=== PATIENT | male | born 1990 | race Two or more races ===

== ENCOUNTER 2020-05-15 03:55 | Inpatient (IN) | payer MEDICARE, OTHER ==
[~2020-05-15] VITALS: Ht 165.1 cm; Wt 52.5 kg
[2020-05-15 04:14] LABS: BASO % 1 % (0-3); EOS % 0 % (0-3); HEMATOCRIT 30.7 % (39.0-53.0); HEMOGLOBIN 10.3 g/dL (13.0-17.5); LYMPH # 0.5 x10^3/uL (1.0-4.8); LYMPH % 21 % (24-48); MEAN CORPUSCULAR HEMOGLOBIN 30 pg (25-35); MEAN CORPUSCULAR HGB CONC 34 g/dL (31-37); MEAN CORPUSCULAR VOLUME 88 fL (79-100); MONO # 0.1 x10^3/uL (0.0-1.1); MONO % 6 % (0-9); NEUT # 1.7 x10^3/uL (1.8-7.7); NEUT % 72 % (31-73); PLATELET COUNT 81 x10^3/uL (140-400); RED BLOOD COUNT 3.47 x10^6/uL (4.30-5.70); RED CELL DISTRIBUTION WIDTH 14.2 % (11.5-14.5); WHITE BLOOD COUNT 2.3 x10^3/uL (4.0-11.0)
[2020-05-15] MEDS ORDERED: ACETAMINOPHEN 500 MG TABLET PO ONE (04:15)
[2020-05-15 04:33] LABS: CALCIUM 7.3 mg/dL (8.5-10.1); CREATININE 11.4 mg/dL (0.7-1.3); GFR 5.3; POTASSIUM 4.4 mmol/L (3.5-5.1)
[2020-05-15 04:39] LABS: TOTAL BILIRUBIN 0.7 mg/dL (0.2-1.0); TOTAL PROTEIN 5.9 g/dL (6.4-8.2)
--- NOTE | 2020-05-15 04:48 | RAD ---
CHEST AP ONLY INDICATION: SOB COMPARISON STUDY: None. FINDINGS: Lungs: Normal lung volume. Multifocal bilateral heterogeneous opacities with areas of nodularity. Pleura: No pleural effusion or pneumothorax. Heart and Mediastinum: Cardiomegaly. Tortuosity of the thoracic aorta. Splaying of the benjamín and double density sign. IMPRESSION: 1. Multifocal bilateral heterogeneous opacities. In the acute setting this probably represents pulmonary edema or multifocal infection. Given some areas of nodularity, follow-up to radiographic resolution is recommended. Alternatively, contrast enhanced CT chest could also be considered. 2. Cardiomegaly. Splaying of the benjamín and double density sign suggestive of left atrial enlargement. Electronically signed by: Casper Olivera MD (05/15/2020 4:45 AM) [facility]
[2020-05-15] MEDS ORDERED: AZITHRMYCN 500MG IVPB FOR OMNI 250 ML IV ONE (05:00)
[2020-05-15] MEDS ORDERED: cefTRIAXone IV Push 1 GM VIAL. IVP ONE (05:00)
--- NOTE | 2020-05-15 05:24 | PHYS DOC ---
Past Medical History Past Medical History: Hypertension, Other Additional Past Medical Histor: esrd Past Surgical History: Other Additional Past Surgical Histo: fistula left upper arm Smoking Status: Never Smoker Alcohol Use: None General Adult EDM: Chief Complaint: SHORTNESS OF BREATH HPI: HPI: Patient is a 29 year old male presenting to the ER by EMS with a chief complai nt of shortness of breath. Patient was tested positive for COVID 4 days ago. Patient also states that he has a fever and has body aches. Patient states that she has had the symptoms for the last 1 week. Patient does state that he has a history of dialysis and goes to dialysis every Friday, and Friday. Patient also states that he has a history of hypertension. Review of Systems: Review of Systems: Constitutional: Complains of fever and body aches [] Eyes: Denies change in visual acuity. [] HENT: Denies nasal congestion or sore throat. [] Respiratory: Complains of shortness of breath [] Cardiovascular: Denies chest pain or edema. [] GI: Denies abdominal pain, nausea, vomiting, bloody stools or diarrhea. [] : Denies dysuria. [] Musculoskeletal: Denies back pain or joint pain. [] Heart Score: Risk Factors: Risk Factors: DM, Current or recent (<one month) smoker, HTN, HLP, family history of CAD, obesity. Risk Scores: Score 0 - 3: 2.5% MACE over next 6 weeks - Discharge Home Score 4 - 6: 20.3% MACE over next 6 weeks - Admit for Clinical Observation Score 7 - 10: 72.7% MACE over next 6 weeks - Early Invasive Strategies Current Medications: Current Medications Medications (Trade) Dose Ordered Sig/Wale Start Time Stop Time Status Last Admin Dose Admin Acetaminophen (Tylenol) 1,000 mg 1X ONCE 05/15/20 04:15 05/15/20 04:21 DC 05/15/20 04:13 1,000 MG Aspirin (Aspirin Chewable) 324 mg 1X ONCE 05/15/20 05:30 05/15/20 05:31 Azithromycin 250 ml @ 250 mls/hr 1X ONCE 05/15/20 05:00 05/15/20 05:59 Ceftriaxone Sodium (Rocephin) 1 gm 1X ONCE 05/15/20 05:00 05/15/20 05:01 DC Allergies: Allergies: Allergies Coded Allergies Type Severity Reaction Last Updated Verified No Known Drug Allergies 05/15/20 No Physical Exam: PE: Constitutional: Well developed, well nourished, no acute distress, non-toxic appearance. [] HENT: Normocephalic, atraumatic Eyes: EOMI Neck: Normal range of motion, Supple Cardiovascular:Heart rate regular rhythm Lungs & Thorax: Bilateral rhonchi [] Abdomen: Bowel sounds normal, soft, no tenderness Extremities: No tenderness, ROM intact Neurologic: Alert and oriented X 3 Current Patient Data: Labs: Laboratory Tests Test 05/15/20 04:05 White Blood Count 2.3 x10^3/uL (4.0-11.0) L Red Blood Count 3.47 x10^6/uL (4.30-5.70) L Hemoglobin 10.3 g/dL (13.0-17.5) L Hematocrit 30.7 % (39.0-53.0) L Mean Corpuscular Volume 88 fL (79-100) Mean Corpuscular Hemoglobin 30 pg (25-35) Mean Corpuscular Hemoglobin Concent 34 g/dL (31-37) Red Cell Distribution Width 14.2 % (11.5-14.5) Platelet Count 81 x10^3/uL (140-400) L Neutrophils (%) (Auto) 72 % (31-73) Lymphocytes (%) (Auto) 21 % (24-48) L Monocytes (%) (Auto) 6 % (0-9) Eosinophils (%) (Auto) 0 % (0-3) Basophils (%) (Auto) 1 % (0-3) Neutrophils # (Auto) 1.7 x10^3/uL (1.8-7.7) L Lymphocytes # (Auto) 0.5 x10^3/uL (1.0-4.8) L Monocytes # (Auto) 0.1 x10^3/uL (0.0-1.1) Eosinophils # (Auto) 0.0 x10^3/uL (0.0-0.7) Basophils # (Auto) 0.0 x10^3/uL (0.0-0.2) Sodium Level 133 mmol/L (136-145) L Potassium Level 4.4 mmol/L (3.5-5.1) Chloride Level 97 mmol/L (98-107) L Carbon Dioxide Level 20 mmol/L (21-32) L Anion Gap 16 (6-14) H Blood Urea Nitrogen 64 mg/dL (8-26) H Creatinine 11.4 mg/dL (0.7-1.3) H Estimated GFR (Cockcroft-Gault) 5.3 BUN/Creatinine Ratio 6 (6-20) Glucose Level 125 mg/dL (70-99) H Lactic Acid Level 0.6 mmol/L (0.4-2.0) Calcium Level 7.3 mg/dL (8.5-10.1) L Total Bilirubin 0.7 mg/dL (0.2-1.0) Aspartate Amino Transferase (AST) 21 U/L (15-37) Alanine Aminotransferase (ALT) 16 U/L (16-63) Alkaline Phosphatase 63 U/L (46-116) Troponin I Quantitative 0.219 ng/mL (0.000-0.055) KP-Kzk-H-Type Natriuretic Peptide > 44956 pg/mL (0-124) H Total Protein 5.9 g/dL (6.4-8.2) L Albumin 3.0 g/dL (3.4-5.0) L Albumin/Globulin Ratio 1.0 (1.0-1.7) Laboratory Tests 05/15/20 04:05 Laboratory Tests 05/15/20 04:05 Vital Signs: Vital Signs Date Time Temp Pulse Resp B/P (MAP) Pulse Ox O2 Delivery O2 Flow Rate FiO2 05/15/20 03:55 101.3 102 22 158/97 (117) 89 Room Air 101.3 EKG: EKG: [EKG interpretation: 4: 09 AM on 05/15/2020 HR: 90 Sinus rhythm Regular intervals Leftward axis Acute T waves in V2, V3, V4, V5 Nonspecific ST changes ] Radiology/Procedures: Radiology/Procedures: [] Impression: CXR IMPRESSION: 1. Multifocal bilateral heterogeneous opacities. In the acute setting this probably represents pulmonary edema or multifocal infection. Given some areas of nodularity, follow-up to radiographic resolution is recommended. Alternatively, contrast enhanced CT chest could also be considered. 2. Cardiomegaly. Splaying of the benjamín and double density sign suggestive of left atrial enlargement. Course & Med Decision Making: Course & Med Decision Making Pertinent Labs and Imaging studies reviewed. (See chart for details) Chest x-ray shows multifocal opacities in bilateral lungs Cardiomegaly is also seen. Patient's potassium is within normal limits. Patient's BNP is elevated Troponin is elevated at 0.219. Patient was given aspirin in the ER. IV antibiotics started in the ER. Patient will be admitted for further evaluation and treatment. Discussed results and plan of care with patient. Will discuss patient case with hospitalist service for admission. Dragon Disclaimer: Dragcarmel Disclaimer: This electronic medical record was generated, in whole or in part, using a voice recognition dictation system. Departure Departure Impression: Primary Impression: Pneumonia Additional Impressions: NSTEMI (non-ST elevated myocardial infarction) COVID-19 Disposition: ADMITTED INPATIENT Admitting Physician: IGOR Condition: GUARDED Referrals: LAITH MIRANDA MD (PCP) Justicifation of Admission Dx: Justifications for Admission: Justification of Admission Dx: Yes Comments: COVID, PNEUMONIA, NSTEMI URBANO HOANG DO May 15, 2020 05:24
[2020-05-15] MEDS ORDERED: ASPIRIN CHEWABLE 81 MG TABLET. PO ONE (05:30)
[2020-05-15 07:20] VITALS: BP 140/72
[2020-05-15] MEDS ORDERED: CALC667T4 PO (11:01)
[2020-05-15] MEDS ORDERED: CARV25TA2 PO (11:01)
[2020-05-15] MEDS ORDERED: CLON0.2T PO (11:01)
[2020-05-15] MEDS ORDERED: AMLO10TA8 PO (11:01)
[2020-05-15 11:20] VITALS: BP 145/82
[2020-05-15] MEDS: CARVEDILOL 12.5 MG TABLET. PO SCH ×2 (12:13→17:05)
[2020-05-15] MEDS: CALCIUM ACETATE 667 MG CAPSULE PO SCH ×2 (12:14→17:03)
[2020-05-15] MEDS: amLODIPine BESYLATE 10 MG TABLET PO SCH (12:14)
[2020-05-15] MEDS: cloNIDine HCL 0.2 MG TABLET PO SCH ×2 (12:14→20:08)
--- NOTE | 2020-05-15 12:41 | HP ---
ADMIT DATE: 05/15/2020 CHIEF COMPLAINT: Shortness of breath. HISTORY OF PRESENT ILLNESS: The patient is a pleasant 29-year-old male who presented to the ER last night with shortness of breath. He apparently was tested positive for COVID-19 four days ago. While in the ER, he does appear to have pneumonia on chest x-ray. I discussed the case with ER physician. We have admitted the patient with consultation to Pulmonary Medicine, Cardiology and Nephrology. PAST MEDICAL HISTORY: End-stage renal disease, I believe he is on dialysis; hypertension, fistula in the left upper arm. ALLERGIES: None. FAMILY HISTORY: Diabetes. SOCIAL HISTORY: He does not drink, smoke or take drugs. MEDICATIONS: Reviewed, please refer to the MRAD. REVIEW OF SYSTEMS: GENERAL: No history of weight change, weakness or fevers. SKIN: No bruising, hair changes or rashes. EYES: No blurred, double or loss of vision. NOSE AND THROAT: No history of nosebleeds, hoarseness or sore throat. HEART: No history of palpitations, chest pain or shortness of breath on exertion. LUNGS: He has shortness of breath. GASTROINTESTINAL: Denies changes in appetite, nausea, vomiting, diarrhea or constipation. GENITOURINARY: No history of frequency, urgency, hesitancy or nocturia. NEUROLOGIC: Denies history of numbness, tingling, tremor or weakness. PSYCHIATRIC: No history of panic, anxiety or depression. ENDOCRINE: No history of heat or cold intolerance, polyuria or polydipsia. EXTREMITIES: Denies muscle weakness, joint pain, pain on walking or stiffness. PHYSICAL EXAMINATION: VITALS: Within normal limits and are stable. GENERAL: No apparent distress. Alert and oriented. HEENT: Normal cephalic atraumatic, external auditory canals are patent. EYES: Extraocular muscles are intact, pupils are equally round and reactive to light and accommodation. MUSCULOSKELETAL: Well developed, well nourished, good range of motion. ENDOCRINE: No thyromegaly was palpated. LYMPHATICS: No cervical chain or axillary nodes were noted. HEMATOPOIETIC: No bruising. NECK: Supple, no JVD, no thyromegaly was noted. LUNGS: He has crackles bilaterally. HEART: RRR, S1, S2 present. Peripheral pulses intact, no obvious murmurs were noted. ABDOMEN: Soft, nontender. Positive bowel sounds no organomegaly, normal bowel sounds. EXTREMITIES: Without any cyanosis, clubbing, or edema. Pedal pulses intact, Homans sign is negative. NEUROLOGIC: Normal speech, normal tone. A and O x 3, moves all extremities, no obvious focal deficits. PSYCHIATRIC: Normal affect, normal mood. Stable. SKIN: No ulcerations or rashes, good skin turgor, no jaundice. VASCULAR: Good capillary refill, neurovascular bundle appears to be intact. IMAGING: Chest x-ray showing bilateral heterogeneous opacities representing infection or edema and cardiomegaly. ASSESSMENT AND PLAN: Respiratory failure with pneumonia and heart failure and volume overload. The patient will be admitted. We will consult Cardiology, Nephrology, and Pulmonary. Home meds. Deep venous thrombosis prophylaxis. Rule out COVID-19. Trend labs. IV azithromycin and IV ceftriaxone, O2 per nasal cannula. SARAH HUMPHREY DO DR: KEITH/zuleyma JOB#: [id number] / [id number]
[2020-05-15] MEDS: ENOXAPARIN 30 MG/0.3 ML SYRINGE. SQ SCH ×2 (15:15→15:26)
--- NOTE | 2020-05-15 15:17 | PDOC ---
PULMONARY PROGRESS NOTES Vitals Vital Signs Date Time Temp Pulse Resp B/P (MAP) Pulse Ox O2 Delivery O2 Flow Rate FiO2 05/15/20 12:14 74 145/82 05/15/20 11:20 98.3 18 96 Nasal Cannula 3.0 98.3 Labs Laboratory Tests Test 05/15/20 04:05 05/15/20 06:50 White Blood Count 2.3 x10^3/uL (4.0-11.0) Red Blood Count 3.47 x10^6/uL (4.30-5.70) Hemoglobin 10.3 g/dL (13.0-17.5) Hematocrit 30.7 % (39.0-53.0) Mean Corpuscular Volume 88 fL (79-100) Mean Corpuscular Hemoglobin 30 pg (25-35) Mean Corpuscular Hemoglobin Concent 34 g/dL (31-37) Red Cell Distribution Width 14.2 % (11.5-14.5) Platelet Count 81 x10^3/uL (140-400) Neutrophils (%) (Auto) 72 % (31-73) Lymphocytes (%) (Auto) 21 % (24-48) Monocytes (%) (Auto) 6 % (0-9) Eosinophils (%) (Auto) 0 % (0-3) Basophils (%) (Auto) 1 % (0-3) Neutrophils # (Auto) 1.7 x10^3/uL (1.8-7.7) Lymphocytes # (Auto) 0.5 x10^3/uL (1.0-4.8) Monocytes # (Auto) 0.1 x10^3/uL (0.0-1.1) Eosinophils # (Auto) 0.0 x10^3/uL (0.0-0.7) Basophils # (Auto) 0.0 x10^3/uL (0.0-0.2) Sodium Level 133 mmol/L (136-145) Potassium Level 4.4 mmol/L (3.5-5.1) Chloride Level 97 mmol/L (98-107) Carbon Dioxide Level 20 mmol/L (21-32) Anion Gap 16 (6-14) Blood Urea Nitrogen 64 mg/dL (8-26) Creatinine 11.4 mg/dL (0.7-1.3) Estimated GFR (Cockcroft-Gault) 5.3 BUN/Creatinine Ratio 6 (6-20) Glucose Level 125 mg/dL (70-99) Lactic Acid Level 0.6 mmol/L (0.4-2.0) Calcium Level 7.3 mg/dL (8.5-10.1) Total Bilirubin 0.7 mg/dL (0.2-1.0) Aspartate Amino Transf (AST/SGOT) 21 U/L (15-37) Alanine Aminotransferase (ALT/SGPT) 16 U/L (16-63) Alkaline Phosphatase 63 U/L (46-116) Troponin I Quantitative 0.219 ng/mL (0.000-0.055) 0.217 ng/mL (0.000-0.055) HG-Pfx-K-Type Natriuretic Peptide > 84720 pg/mL (0-124) Total Protein 5.9 g/dL (6.4-8.2) Albumin 3.0 g/dL (3.4-5.0) Albumin/Globulin Ratio 1.0 (1.0-1.7) Laboratory Tests Test 05/15/20 04:05 05/15/20 06:50 White Blood Count 2.3 x10^3/uL (4.0-11.0) Red Blood Count 3.47 x10^6/uL (4.30-5.70) Hemoglobin 10.3 g/dL (13.0-17.5) Hematocrit 30.7 % (39.0-53.0) Mean Corpuscular Volume 88 fL (79-100) Mean Corpuscular Hemoglobin 30 pg (25-35) Mean Corpuscular Hemoglobin Concent 34 g/dL (31-37) Red Cell Distribution Width 14.2 % (11.5-14.5) Platelet Count 81 x10^3/uL (140-400) Neutrophils (%) (Auto) 72 % (31-73) Lymphocytes (%) (Auto) 21 % (24-48) Monocytes (%) (Auto) 6 % (0-9) Eosinophils (%) (Auto) 0 % (0-3) Basophils (%) (Auto) 1 % (0-3) Neutrophils # (Auto) 1.7 x10^3/uL (1.8-7.7) Lymphocytes # (Auto) 0.5 x10^3/uL (1.0-4.8) Monocytes # (Auto) 0.1 x10^3/uL (0.0-1.1) Eosinophils # (Auto) 0.0 x10^3/uL (0.0-0.7) Basophils # (Auto) 0.0 x10^3/uL (0.0-0.2) Sodium Level 133 mmol/L (136-145) Potassium Level 4.4 mmol/L (3.5-5.1) Chloride Level 97 mmol/L (98-107) Carbon Dioxide Level 20 mmol/L (21-32) Anion Gap 16 (6-14) Blood Urea Nitrogen 64 mg/dL (8-26) Creatinine 11.4 mg/dL (0.7-1.3) Estimated GFR (Cockcroft-Gault) 5.3 BUN/Creatinine Ratio 6 (6-20) Glucose Level 125 mg/dL (70-99) Lactic Acid Level 0.6 mmol/L (0.4-2.0) Calcium Level 7.3 mg/dL (8.5-10.1) Total Bilirubin 0.7 mg/dL (0.2-1.0) Aspartate Amino Transf (AST/SGOT) 21 U/L (15-37) Alanine Aminotransferase (ALT/SGPT) 16 U/L (16-63) Alkaline Phosphatase 63 U/L (46-116) Troponin I Quantitative 0.219 ng/mL (0.000-0.055) 0.217 ng/mL (0.000-0.055) WJ-Hft-B-Type Natriuretic Peptide > 59397 pg/mL (0-124) Total Protein 5.9 g/dL (6.4-8.2) Albumin 3.0 g/dL (3.4-5.0) Albumin/Globulin Ratio 1.0 (1.0-1.7) Medications Active Scripts Medications Dose Route/Sig Max Daily Dose Days Date Category Calcium Acetate 667 Mg Tablet 1 Tab PO TID 30 05/15/20 Reported Amlodipine Besylate 10 Mg Tablet 10 Mg PO DAILY 05/15/20 Reported Clonidine Hcl 0.2 Mg Tablet 1 Tab PO BID 05/15/20 Reported Carvedilol 25 Mg Tablet 25 Mg PO BIDWMEALS 05/15/20 Reported Impression . Full report dictated COVID-19, viral pneumonia Add steroids DVT prophylaxis Data not very strong on use of the Remdesivir in this clinical presentation KRISTIE XIONG MD May 15, 2020 15:17
[2020-05-15] MEDS: methylPREDNISolone SOD SUCC PF 125 MG/2 ML VIAL. IV SCH ×2 (15:26→20:09)
[2020-05-15 15:30] VITALS: BP 135/78
--- NOTE | 2020-05-15 16:09 | PDOC2 ---
WASHINGTON PATEL URANIUM PROCESSING SUPERVISOR 05/15/20 1609: CARDIAC CONSULT DATE OF CONSULT Date of Consult DATE: 05/15/20 TIME: 15:59 REASON FOR CONSULT Reason for Consult: Elevated troponin REFERRING PHYSICIAN Referring Physician: Dr. Artis SOURCE Source: Chart review, Patient HISTORY OF PRESENT ILLNESS HISTORY OF PRESENT ILLNESS This is a 29 yo male, with a history of hypertension and ESRD on HD, who presented secondary to shortness of breath. Reports week long history of fever, body aches, and shortness of breath. Tested positive for COVID 4 days ago. Troponin noted to be mildly elevated, which prompted this consult. Denies any chest pain, palpitations, dizziness, or nausea/vomiting. PAST MEDICAL HISTORY Cardiovascular: HTN Renal/: Chronic renal failure (ESRD on HD) PAST SURGICAL HISTORY Past Surgical History: No pertinent history FAMILY HISTORY Family History: Diabetes SOCIAL HISTORY Smoke: No ALCOHOL: none Drugs: None CURRENT MEDICATIONS CURRENT MEDICATIONS Current Medications Medications (Trade) Dose Ordered Sig/Wale Route PRN Reason Start Time Stop Time Status Last Admin Dose Admin Acetaminophen (Tylenol) 1,000 mg 1X ONCE PO 05/15/20 04:15 05/15/20 04:21 DC 05/15/20 04:13 Ceftriaxone Sodium (Rocephin) 1 gm 1X ONCE IVP 05/15/20 05:00 05/15/20 05:01 DC 05/15/20 05:33 Azithromycin 250 ml @ 250 mls/hr 1X ONCE IV 05/15/20 05:00 05/15/20 05:59 DC 05/15/20 05:36 Aspirin (Aspirin Chewable) 324 mg 1X ONCE PO 05/15/20 05:30 05/15/20 05:31 DC 05/15/20 05:34 Amlodipine Besylate (Norvasc) 10 mg DAILY PO 05/15/20 12:00 05/15/20 12:14 Clonidine HCl (Catapres) 0.2 mg BID PO 05/15/20 11:00 05/15/20 12:14 Calcium Acetate (Phoslo) 667 mg TIDWMEALS PO 05/15/20 12:00 05/15/20 12:14 Carvedilol (Coreg) 25 mg BIDWMEALS PO 05/15/20 12:00 05/15/20 12:13 Methylprednisolone Sodium Succinate (SOLU-Medrol 125MG VIAL) 125 mg Q8HRS IV 05/15/20 15:15 05/15/20 15:26 ALLERGIES ALLERGIES: Coded Allergies: No Known Drug Allergies (Unverified , 05/15/20) ROS Review of System 14 point ROS conducted with pertinent positives noted above in HPI PHYSICAL EXAM PHYSICAL EXAM visual exam conducted due to COVID. D/w RN General: Alert, Oriented X3, Cooperative HEENT: Atraumatic Heart: Regular rate (tele SR) Extremities: No edema Neuro: Normal speech Psych/Mental Status: Mental status NL MUSCULOSKELETAL: No deformity VITALS/I&O VITALS/I&O: Vital Signs Date Time Temp Pulse Resp B/P (MAP) Pulse Ox O2 Delivery O2 Flow Rate FiO2 05/15/20 15:30 101.9 80 20 135/78 (97) 95 Nasal Cannula 3.0 101.9 LABS Lab: Laboratory Tests Test 05/15/20 04:05 05/15/20 06:50 White Blood Count 2.3 x10^3/uL (4.0-11.0) L Red Blood Count 3.47 x10^6/uL (4.30-5.70) L Hemoglobin 10.3 g/dL (13.0-17.5) L Hematocrit 30.7 % (39.0-53.0) L Mean Corpuscular Volume 88 fL (79-100) Mean Corpuscular Hemoglobin 30 pg (25-35) Mean Corpuscular Hemoglobin Concent 34 g/dL (31-37) Red Cell Distribution Width 14.2 % (11.5-14.5) Platelet Count 81 x10^3/uL (140-400) L Neutrophils (%) (Auto) 72 % (31-73) Lymphocytes (%) (Auto) 21 % (24-48) L Monocytes (%) (Auto) 6 % (0-9) Eosinophils (%) (Auto) 0 % (0-3) Basophils (%) (Auto) 1 % (0-3) Neutrophils # (Auto) 1.7 x10^3/uL (1.8-7.7) L Lymphocytes # (Auto) 0.5 x10^3/uL (1.0-4.8) L Monocytes # (Auto) 0.1 x10^3/uL (0.0-1.1) Eosinophils # (Auto) 0.0 x10^3/uL (0.0-0.7) Basophils # (Auto) 0.0 x10^3/uL (0.0-0.2) Sodium Level 133 mmol/L (136-145) L Potassium Level 4.4 mmol/L (3.5-5.1) Chloride Level 97 mmol/L (98-107) L Carbon Dioxide Level 20 mmol/L (21-32) L Anion Gap 16 (6-14) H Blood Urea Nitrogen 64 mg/dL (8-26) H Creatinine 11.4 mg/dL (0.7-1.3) H Estimated GFR (Cockcroft-Gault) 5.3 BUN/Creatinine Ratio 6 (6-20) Glucose Level 125 mg/dL (70-99) H Lactic Acid Level 0.6 mmol/L (0.4-2.0) Calcium Level 7.3 mg/dL (8.5-10.1) L Total Bilirubin 0.7 mg/dL (0.2-1.0) Aspartate Amino Transferase (AST) 21 U/L (15-37) Alanine Aminotransferase (ALT) 16 U/L (16-63) Alkaline Phosphatase 63 U/L (46-116) Troponin I Quantitative 0.219 ng/mL (0.000-0.055) 0.217 ng/mL (0.000-0.055) GQ-Paz-U-Type Natriuretic Peptide > 64882 pg/mL (0-124) H Total Protein 5.9 g/dL (6.4-8.2) L Albumin 3.0 g/dL (3.4-5.0) L Albumin/Globulin Ratio 1.0 (1.0-1.7) Laboratory Tests 05/15/20 04:05 Laboratory Tests 05/15/20 04:05 ASSESSMENT/PLAN ASSESSMENT/PLAN 1. Acute respiratory failure secondary to COVID PNA. Febrile 2. Leukopenia 3. NSTEMI; trop peak 0.219. Most probably type II, demand ischemic in setting of COVID, uremia. 4. Acute diastolic CHF 5. ESRD on HD; uremic 6. Hypertension; controlled Recommendations Fluid offloading/management via HD Lipids Lung optimization as per pulmonary Continue home antiHTN therapy Will obtain outpatient echocardiogram when recovered from COVID Supportive care PACO HESTER MD 05/15/20 1614: CARDIAC CONSULT ASSESSMENT/PLAN ASSESSMENT/PLAN Agree with INSTALLATION & MAINTENANCE EXECUTIVE's assessment and plan. Slight troponin elevation probably demand ischemia. Patient is chest pain-free. Continue fluid removal with hemodialysis for acute on chronic diastolic heart failure. Continue treatment for acute respiratory failure/COVID pneumonia per pulmonary team. We will obtain 2D echocardiogram as an outpatient. Thank you for your consultation WASHINGTON PATEL APRN May 15, 2020 16:09 PACO HESTER MD May 15, 2020 16:14
[2020-05-15] MEDS: ACETAMINOPHEN 325 MG TABLET. PO PRN (16:11)
[2020-05-15 16:29] LABS: CHOLESTEROL/HDL RATIO 5.6
--- NOTE | 2020-05-15 16:58 | NUR ---
SW following. Reviewed chart and spoke with RN. Pt from home. Pt on 3l 02 and IV Rocephin. Pt positive for Pneumonia. Pt consulted by Pulmonary, Cardiology and Nephrology. Pt does out-patient dialysis at [facility] on Tuesdays, and Saturdays, , (fax). Pt has been doing dialysis at [place] location per COVID-19 and SW confirmed with [facility] intake. SW will continue following.
[2020-05-15 19:00] VITALS: BP 137/89
--- NOTE | 2020-05-15 20:10 | CONS ---
DATE OF CONSULTATION: 05/15/2020 ATTENDING PHYSICIAN: Ming Campos DO CONSULTING PHYSICIAN: Kristie Xiong MD REASON FOR CONSULTATION: The patient is seen in pulmonary consultation at the request of Dr. Campos for COVID-19, increasing shortness of breath. HISTORY OF PRESENT ILLNESS: The patient is a 29-year-old who was tested positive for SARS-CoV-2. He was at home. He became increasingly more short of breath and has some body aches, presented to the Emergency Room and was admitted. I was asked to see him in consultation. The patient states that initially 4 days ago he basically had an elevated temperature. He does have a history of end-stage renal disease, on hemodialysis, Friday, and Friday. There is also history of hypertension. PAST MEDICAL HISTORY: Remarkable for hypertension and end-stage renal disease. REVIEW OF SYSTEMS: As indicated above, otherwise, other systems were reviewed and negative. FAMILY HISTORY: Mother with COVID-19. SOCIAL HISTORY: Denies any tobacco or alcohol. CURRENT MEDICATIONS: List was reviewed. PHYSICAL EXAMINATION: VITAL SIGNS: Stable. O2 saturation was greater than 92%. He is currently on 2 liters. His T-max was yesterday 101.3. HEENT: Eyes, the sclerae were nonicteric. NECK: Jugular venous distention was not elevated. No lymphadenopathy. CHEST: Full expansion. LUNGS: Adequate flow with no wheezes. CARDIOVASCULAR: Regular rate and rhythm with S1, S2, no S3. ABDOMEN: Soft, nontender, nondistended. EXTREMITIES: No clubbing, cyanosis or edema. LABORATORY DATA: WBC revealed leukopenia, lymphocytopenia. Sodium was low. BUN and creatinine were elevated. Calcium was low. BNP was elevated. Troponin was elevated. Chest x-ray revealed bilateral pulmonary infiltrates. IMPRESSION: 1. Acute hypoxemic failure. 2. COVID-19 viral pneumonia. 3. Fever secondary to above. 4. End-stage renal disease. PLAN: 1. We will continue support with oxygen. 2. Steroids. 3. We will consider remdesivir. 4. DVT and GI prophylaxis. I do appreciate the privilege in sharing in the patient's care. KRISTIE XIONG MD DR: CARLOS/zuleyma JOB#: [id number] / [id number]
[2020-05-15] MEDS: HEPARIN for SUB-Q USE 5,000 UNIT/ML VIAL. SQ SCH (22:00)
[2020-05-15 23:00] VITALS: BP 135/99
[2020-05-16 03:00] VITALS: BP 136/82
[2020-05-16] MEDS: methylPREDNISolone SOD SUCC PF 125 MG/2 ML VIAL. IV SCH ×3 (04:49→21:13)
[2020-05-16] MEDS: AZITHROMYCIN 500 MG in IV NORMAL SALINE 250ML 250 ML IV SCH (04:49)
[2020-05-16] MEDS: HEPARIN for SUB-Q USE 5,000 UNIT/ML VIAL. SQ SCH ×3 (04:50→21:12)
[2020-05-16] MEDS: cefTRIAXone IV Push 1 GM VIAL. IVP SCH (04:50)
[2020-05-16 07:15] VITALS: BP 126/77
[2020-05-16] MEDS: CARVEDILOL 12.5 MG TABLET. PO SCH ×2 (08:00→14:20)
[2020-05-16] MEDS: cloNIDine HCL 0.2 MG TABLET PO SCH ×2 (08:09→21:13)
[2020-05-16] MEDS ORDERED: IV NORMAL SALINE 1000ML BAG 1,000 ML IV PRN ×4 (08:13→08:34)
[2020-05-16] MEDS ORDERED: diphenhydrAMINE 50 MG/ML VIAL IV PRN ×2 (08:15)
[2020-05-16] MEDS ORDERED: DIALYSIS PATIENT. MC PRN ×3 (08:15→08:45)
[2020-05-16] MEDS ORDERED: ALBUMIN HUMAN 25% 200 ML IV PRN ×2 (08:15→08:45)
[2020-05-16] MEDS: CALCIUM ACETATE 667 MG CAPSULE PO SCH ×3 (08:17→17:00)
--- NOTE | 2020-05-16 08:49 | PDOC ---
PULMONARY PROGRESS NOTES Subjective No new symptoms Vitals Vital Signs Date Time Temp Pulse Resp B/P (MAP) Pulse Ox O2 Delivery O2 Flow Rate FiO2 05/16/20 07:45 Nasal Cannula 3.0 05/16/20 07:15 97.0 60 126/77 (93) 97 97.0 05/16/20 03:00 16 Comments Patient seen doing the pandemic, on visual examination no respiratory distress, Labs Laboratory Tests Test 05/15/20 04:05 05/15/20 04:50 05/15/20 06:50 White Blood Count 2.3 x10^3/uL (4.0-11.0) Red Blood Count 3.47 x10^6/uL (4.30-5.70) Hemoglobin 10.3 g/dL (13.0-17.5) Hematocrit 30.7 % (39.0-53.0) Mean Corpuscular Volume 88 fL (79-100) Mean Corpuscular Hemoglobin 30 pg (25-35) Mean Corpuscular Hemoglobin Concent 34 g/dL (31-37) Red Cell Distribution Width 14.2 % (11.5-14.5) Platelet Count 81 x10^3/uL (140-400) Neutrophils (%) (Auto) 72 % (31-73) Lymphocytes (%) (Auto) 21 % (24-48) Monocytes (%) (Auto) 6 % (0-9) Eosinophils (%) (Auto) 0 % (0-3) Basophils (%) (Auto) 1 % (0-3) Neutrophils # (Auto) 1.7 x10^3/uL (1.8-7.7) Lymphocytes # (Auto) 0.5 x10^3/uL (1.0-4.8) Monocytes # (Auto) 0.1 x10^3/uL (0.0-1.1) Eosinophils # (Auto) 0.0 x10^3/uL (0.0-0.7) Basophils # (Auto) 0.0 x10^3/uL (0.0-0.2) Sodium Level 133 mmol/L (136-145) Potassium Level 4.4 mmol/L (3.5-5.1) Chloride Level 97 mmol/L (98-107) Carbon Dioxide Level 20 mmol/L (21-32) Anion Gap 16 (6-14) Blood Urea Nitrogen 64 mg/dL (8-26) Creatinine 11.4 mg/dL (0.7-1.3) Estimated GFR (Cockcroft-Gault) 5.3 BUN/Creatinine Ratio 6 (6-20) Glucose Level 125 mg/dL (70-99) Lactic Acid Level 0.6 mmol/L (0.4-2.0) Calcium Level 7.3 mg/dL (8.5-10.1) Total Bilirubin 0.7 mg/dL (0.2-1.0) Aspartate Amino Transf (AST/SGOT) 21 U/L (15-37) Alanine Aminotransferase (ALT/SGPT) 16 U/L (16-63) Alkaline Phosphatase 63 U/L (46-116) Troponin I Quantitative 0.219 ng/mL (0.000-0.055) 0.217 ng/mL (0.000-0.055) FK-Apq-O-Type Natriuretic Peptide > 17638 pg/mL (0-124) Total Protein 5.9 g/dL (6.4-8.2) Albumin 3.0 g/dL (3.4-5.0) Albumin/Globulin Ratio 1.0 (1.0-1.7) Triglycerides Level 127 mg/dL (0-150) Cholesterol Level 112 mg/dL (0-200) LDL Cholesterol, Calculated 67 mg/dL (0-100) VLDL Cholesterol, Calculated 25 mg/dL (0-40) Non-HDL Cholesterol Calculated 92 mg/dL (0-129) HDL Cholesterol 20 mg/dL (40-60) Cholesterol/HDL Ratio 5.6 Medications Active Scripts Medications Dose Route/Sig Max Daily Dose Days Date Category Calcium Acetate 667 Mg Tablet 1 Tab PO TID 30 05/15/20 Reported Amlodipine Besylate 10 Mg Tablet 10 Mg PO DAILY 05/15/20 Reported Clonidine Hcl 0.2 Mg Tablet 1 Tab PO BID 05/15/20 Reported Carvedilol 25 Mg Tablet 25 Mg PO BIDWMEALS 05/15/20 Reported Impression . IMPRESSION: 1. Acute hypoxemic failure. 2. COVID-19 viral pneumonia. 3. Fever secondary to above. 4. End-stage renal disease. Plan . Continue support Steroids Oxygen supplementation DVT GI prophylax KRISTIE XIONG MD May 16, 2020 08:49
--- NOTE | 2020-05-16 10:17 | PDOC2 ---
CONSULT Date of Consult Date of Consult DATE: 05/16/20 TIME: 10:04 Reason for Consult Reason for Consult: ESRD Source Source: Chart review, Patient History of Present Illness Reason for Visit: Patient is a is a 29-year-old male who was tested positive for SARS-CoV-2. He was at home. He became increasingly more short of breath and has some body aches, presented to the Emergency Room and was admitted. Per pt initially 4 days ago he had an elevated temperature. He have a history of ESRD on hemodialysis, TTS under DR. Peter's care Reports some UOP Denies any N/V. No SOb currently. Past Medical History Cardiovascular: HTN Renal/: Chronic renal failure (ESRD on HD) Past Surgical History Past Surgical History: No pertinent history Family History Family History: Diabetes Social History No ALCOHOL: none Drugs: None Current Problem List Problem List Problems Medical Problems: (1) COVID-19 Status: Acute (2) NSTEMI (non-ST elevated myocardial infarction) Status: Acute (3) Pneumonia Status: Acute Current Medications Current Medications Current Medications Acetaminophen (Tylenol) 1,000 mg 1X ONCE PO Last administered on 05/15/20at 04:13; Start 05/15/20 at 04:15; Stop 05/15/20 at 04:21; Status DC Ceftriaxone Sodium (Rocephin) 1 gm 1X ONCE IVP Last administered on 05/15/20at 05:33; Start 05/15/20 at 05:00; Stop 05/15/20 at 05:01; Status DC Azithromycin 250 ml @ 250 mls/hr 1X ONCE IV Last administered on 05/15/20at 05:36; Start 05/15/20 at 05:00; Stop 05/15/20 at 05:59; Status DC Aspirin (Aspirin Chewable) 324 mg 1X ONCE PO Last administered on 05/15/20at 05:34; Start 05/15/20 at 05:30; Stop 05/15/20 at 05:31; Status DC Amlodipine Besylate (Norvasc) 10 mg DAILY PO Last administered on 05/15/20at 1 2:14; Start 05/15/20 at 12:00 Clonidine HCl (Catapres) 0.2 mg BID PO Last administered on 05/15/20at 20:08; Start 05/15/20 at 11:00 Calcium Acetate (Phoslo) 667 mg TIDWMEALS PO Last administered on 05/16/20at 08:17; Start 05/15/20 at 12:00 Carvedilol (Coreg) 25 mg BIDWMEALS PO Last administered on 05/15/20at 17:05; Start 05/15/20 at 12:00 Ceftriaxone Sodium (Rocephin) 1 gm Q24H IVP Last administered on 05/16/20at 04:50; Start 05/16/20 at 05:30 Azithromycin 500 mg/Sodium Chloride 250 ml @ 250 mls/hr Q24H IV Last ad ministered on 05/16/20at 04:49; Start 05/16/20 at 06:00 Methylprednisolone Sodium Succinate (SOLU-Medrol 125MG VIAL) 125 mg Q8HRS IV Last administered on 05/16/20at 04:49; Start 05/15/20 at 15:15 Enoxaparin Sodium (Lovenox 30mg Syringe) 30 mg Q24H SQ ; Start 05/15/20 at 15:15; Stop 05/15/20 at 17:47; Status DC Acetaminophen (Tylenol) 650 mg PRN Q6HRS PRN PO FEVER > 101 Last administered on 05/15/20at 16:11; Start 05/15/20 at 15:45 Heparin Sodium (Porcine) (Heparin Sodium) 5,000 unit Q8HRS SQ ; Start 05/15/20 at 22:00 Sodium Chloride 1,000 ml @ 1,000 mls/hr Q1H PRN IV hypotension; Start 05/16/20 at 08:13; Stop 05/16/20 at 14:12 Albumin Human 200 ml @ 200 mls/hr 1X PRN PRN IV Hypotension; Start 05/16/20 at 08:15; Stop 05/16/20 at 14:14 Diphenhydramine HCl (Benadryl) 25 mg 1X PRN PRN IV ITCHING; Start 05/16/20 at 08:15; Stop 05/17/20 at 08:14 Diphenhydramine HCl (Benadryl) 25 mg 1X PRN PRN IV ITCHING; Start 05/16/20 at 08:15; Stop 05/17/20 at 08:14 Sodium Chloride 1,000 ml @ 400 mls/hr Q2H30M PRN IV PATENCY; Start 05/16/20 at 08:13; Stop 05/16/20 at 20:12 Info (PHARMACY MONITORING -- do not chart) 1 each PRN DAILY PRN MC SEE COMMENTS; Start 05/16/20 at 08:15 Sodium Chloride 1,000 ml @ 1,000 mls/hr Q1H PRN IV hypotension; Start 05/16/20 at 08:34; Stop 05/16/20 at 14:33 Albumin Human 200 ml @ 200 mls/hr 1X PRN PRN IV Hypotension; Start 05/16/20 at 08:45; Stop 05/16/20 at 14:44 Sodium Chloride 1,000 ml @ 400 mls/hr Q2H30M PRN IV PATENCY; Start 05/16/20 at 08:34; Stop 05/16/20 at 20:33 Info (PHARMACY MONITORING -- do not chart) 1 each PRN DAILY PRN MC SEE COMMENTS; Start 05/16/20 at 08:45; Status UNV Info (PHARMACY MONITORING -- do not chart) 1 each PRN DAILY PRN MC SEE COMMENTS; Start 05/16/20 at 08:45 Active Scripts Active Reported Calcium Acetate 667 Mg Tablet 1 Tab PO TID 30 Days Amlodipine Besylate 10 Mg Tablet 10 Mg PO DAILY Clonidine Hcl 0.2 Mg Tablet 1 Tab PO BID Carvedilol 25 Mg Tablet 25 Mg PO BIDWMEALS Allergies Allergies: Coded Allergies: No Known Drug Allergies (Unverified , 05/15/20) ROS Review of System Per HPI Physical Exam Physical Exam visual exam conducted due to COVID. D/w RN General: Alert, Oriented X3, Cooperative HEENT: Atraumatic Heart: Regular rate (tele SR) Extremities: No edema Neuro: Normal speech Psych/Mental Status: Mental status NL No Mendez Vital Signs Vital Signs Date Time Temp Pulse Resp B/P (MAP) Pulse Ox O2 Delivery O2 Flow Rate FiO2 05/16/20 07:45 Nasal Cannula 3.0 05/16/20 07:15 97.0 60 126/77 (93) 97 97.0 05/16/20 03:00 16 Assessment & Plan ESRD -On HD TTS under Dr. Peter's care , Etiology HTNsive nephrosclerosis On HD for approx 3 years, has some RRF per Pt See on HD today, tolerating well, continue as ordered , Adis Negrete Acute hypoxemic failure- Currently stable Abnormal CxR - Multifocal bilateral heterogeneous opacities.,probably represents pulmonary edema or multifocal infection. Given some areas of nodularity, follow-up to radiographic resolution is recommended. Alternatively, contrast enhanced CT chest could also be considered COVID-19 viral pneumonia- Positive at outside lab , Pulm managing HTN - BP stable Anemia- Goal Hgb 10-11, DELLA per protocol Acute diastolic CHF- stable, card consulted Labs Labs Laboratory Tests Test 05/15/20 04:05 05/15/20 04:50 05/15/20 06:50 White Blood Count 2.3 x10^3/uL (4.0-11.0) Red Blood Count 3.47 x10^6/uL (4.30-5.70) Hemoglobin 10.3 g/dL (13.0-17.5) Hematocrit 30.7 % (39.0-53.0) Mean Corpuscular Volume 88 fL (79-100) Mean Corpuscular Hemoglobin 30 pg (25-35) Mean Corpuscular Hemoglobin Concent 34 g/dL (31-37) Red Cell Distribution Width 14.2 % (11.5-14.5) Platelet Count 81 x10^3/uL (140-400) Neutrophils (%) (Auto) 72 % (31-73) Lymphocytes (%) (Auto) 21 % (24-48) Monocytes (%) (Auto) 6 % (0-9) Eosinophils (%) (Auto) 0 % (0-3) Basophils (%) (Auto) 1 % (0-3) Neutrophils # (Auto) 1.7 x10^3/uL (1.8-7.7) Lymphocytes # (Auto) 0.5 x10^3/uL (1.0-4.8) Monocytes # (Auto) 0.1 x10^3/uL (0.0-1.1) Eosinophils # (Auto) 0.0 x10^3/uL (0.0-0.7) Basophils # (Auto) 0.0 x10^3/uL (0.0-0.2) Sodium Level 133 mmol/L (136-145) Potassium Level 4.4 mmol/L (3.5-5.1) Chloride Level 97 mmol/L (98-107) Carbon Dioxide Level 20 mmol/L (21-32) Anion Gap 16 (6-14) Blood Urea Nitrogen 64 mg/dL (8-26) Creatinine 11.4 mg/dL (0.7-1.3) Estimated GFR (Cockcroft-Gault) 5.3 BUN/Creatinine Ratio 6 (6-20) Glucose Level 125 mg/dL (70-99) Lactic Acid Level 0.6 mmol/L (0.4-2.0) Calcium Level 7.3 mg/dL (8.5-10.1) Total Bilirubin 0.7 mg/dL (0.2-1.0) Aspartate Amino Transf (AST/SGOT) 21 U/L (15-37) Alanine Aminotransferase (ALT/SGPT) 16 U/L (16-63) Alkaline Phosphatase 63 U/L (46-116) Troponin I Quantitative 0.219 ng/mL (0.000-0.055) 0.217 ng/mL (0.000-0.055) ND-Srj-H-Type Natriuretic Peptide > 52347 pg/mL (0-124) Total Protein 5.9 g/dL (6.4-8.2) Albumin 3.0 g/dL (3.4-5.0) Albumin/Globulin Ratio 1.0 (1.0-1.7) Triglycerides Level 127 mg/dL (0-150) Cholesterol Level 112 mg/dL (0-200) LDL Cholesterol, Calculated 67 mg/dL (0-100) VLDL Cholesterol, Calculated 25 mg/dL (0-40) Non-HDL Cholesterol Calculated 92 mg/dL (0-129) HDL Cholesterol 20 mg/dL (40-60) Cholesterol/HDL Ratio 5.6 Review All relevant outside records, renal labs, imaging studies, telemetry/EKG's were reviewed. Images Images CxR-- 1. Multifocal bilateral heterogeneous opacities. In the acute setting this probably represents pulmonary edema or multifocal infection. Given some areas of nodularity, follow-up to radiographic resolution is recommended. Alternatively, contrast enhanced CT chest could also be considered. 2. Cardiomegaly. Splaying of the benjamín and double density sign suggestive of left atrial enlargement. ALLEN MULLEN MD May 16, 2020 10:17
--- NOTE | 2020-05-16 11:01 | NUR ---
SW following. Reviewed chart and spoke with RN. Pt from home. Pt on 3. Pt does not have home 02 so this will need to be arranged if needed at discharge. CHATA attempted to call the [facility] Department at [phone] to obtain copy of pt's COVID test results per request of RN. CHATA informed by the HD that they don't have a release of information for and that pt will need to call to request that records be released. Pt to discharge home with resumption of out-patient dialysis when stable. CHATA to continue following. Addendum: 05/16/20 at 1136 by NITZA BRIZUELA RN to request COVID testing.
--- NOTE | 2020-05-16 11:31 | PDOC ---
[facility] PROGRESS NOTE Chief Complaint Chief Complaint COVID-19 ESRD on dialysis Respiratory failure with pneumonia and heart failure and volume overload. History of Present Illness History of Present Illness 05/16/2022 Patient seen and examined He is on his way to dialysis Discussed with RN Chart Vitals/I&O Vitals/I&O: Vital Signs Date Time Temp Pulse Resp B/P (MAP) Pulse Ox O2 Delivery O2 Flow Rate FiO2 05/16/20 07:45 Nasal Cannula 3.0 05/16/20 07:15 97.0 60 126/77 (93) 97 97.0 05/16/20 03:00 16 I & O 05/15/20 05/15/20 05/16/20 15:00 23:00 07:00 Intake Total 350 ml 500 ml 700 ml Balance 350 ml 500 ml 700 ml Physical Exam General: Alert, Oriented X3, Cooperative Heart: Regular rate (tele SR) Lungs: Crackles Abdomen: Normal bowel sounds Extremities: No clubbing, No edema Skin: No rashes Assessment and Plan Assessmemt and Plan Problems Medical Problems: (1) COVID-19 Status: Acute (2) NSTEMI (non-ST elevated myocardial infarction) Status: Acute (3) Pneumonia Status: Acute COVID-19 ESRD on dialysis Respiratory failure with pneumonia and heart failure and volume overload. Plan COVID-19 protocol Dialysis Friday Home meds DVT prophylaxis Full code Appreciate subspecialist input Prognosis guarded Comment Review of Relevant I have reviewed the following items samira (where applicable) has been applied. Medications: Current Medications Medications (Trade) Dose Ordered Sig/Wale Route PRN Reason Start Time Stop Time Status Last Admin Dose Admin Amlodipine Besylate (Norvasc) 10 mg DAILY PO 05/15/20 12:00 05/15/20 12:14 Calcium Acetate (Phoslo) 667 mg TIDWMEALS PO 05/15/20 12:00 05/16/20 08:17 Carvedilol (Coreg) 25 mg BIDWMEALS PO 05/15/20 12:00 05/15/20 17:05 Ceftriaxone Sodium (Rocephin) 1 gm Q24H IVP 05/16/20 05:30 05/16/20 04:50 Azithromycin 500 mg/Sodium Chloride 250 ml @ 250 mls/hr Q24H IV 05/16/20 06:00 05/16/20 04:49 Methylprednisolone Sodium Succinate (SOLU-Medrol 125MG VIAL) 125 mg Q8HRS IV 05/15/20 15:15 05/16/20 04:49 Acetaminophen (Tylenol) 650 mg PRN Q6HRS PRN PO FEVER > 101 05/15/20 15:45 05/15/20 16:11 Justicifation of Admission Dx: Justifications for Admission: Justification of Admission Dx: Yes SARAH HUMPHREY III DO May 16, 2020 11:31
[2020-05-16] MEDS: ACETAMINOPHEN 325 MG TABLET. PO PRN (14:20)
[2020-05-16] MEDS: amLODIPine BESYLATE 10 MG TABLET PO SCH (14:20)
[2020-05-16 14:21] VITALS: BP 159/96
--- NOTE | 2020-05-16 15:16 | EKG ---
[facility] [address] [place] [address] Test Date: 2020-05-15 Test Time: 04:09:30 Pat Name: AISHA ZEE Department: Room: [facility] Gender: M Retail Beauty Specialist: : 1990 Requested By: URBANO HOANG Order Number: [id number] Reading MD: Measurements Intervals [place] Rate: 90 P: 36 MT: 164 QRS: -3 QRSD: 82 T: 114 QT: 338 QTc: 417 Interpretive Statements SINUS RHYTHM LEFT ATRIAL ABNORMALITY LEFTWARD AXIS LVH WITH REPOLARIZATION ABNORMALITY ABNORMAL ECG RI6.02 No previous ECG available for comparison
--- NOTE | 2020-05-16 15:32 | PDOC ---
WASHINGTON PATEL APRN 05/16/20 1532: CARDIO Progress Notes Date and Time Date of Service 05/16/20 Time of Evaluation 1120 Subjective Subjective: No Chest Pain, No Palpitations, No Dizziness, Other (mild SOA) Vitals Vitals Vital Signs Date Time Temp Pulse Resp B/P (MAP) Pulse Ox O2 Delivery O2 Flow Rate FiO2 05/16/20 14:21 97.2 75 159/96 (117) 97 Nasal Cannula 1.5 97.2 05/16/20 03:00 16 Weight Weight [ ] Input and Output Intake and Output Intake and Output 05/16/20 06:59 Intake Total 1550 ml Balance 1550 ml Intake Oral 1300 ml IV Total 250 ml # Voids 2 Microbiology Micro Microbiology 05/15/20 Blood Culture - Preliminary, Resulted NO GROWTH AFTER 1 DAY Physical Exam HEENT: Neck Supple W Full Motion Chest: Symmetric LUNGS: Clear to Auscultation Heart: S1S2, RRR Abdomen: Soft N/T Extremities: No Edema Neurology: alert, oriented, follow commands Assessment Assessment 1. Acute respiratory failure secondary to COVID PNA. 2. Leukopenia 3. NSTEMI; trop peak 0.219. Most probably type II, demand ischemic in setting of COVID, uremia. 4. Acute diastolic CHF; better compensated 5. ESRD on HD; uremic 6. Hypertension; controlled Recommendations Fluid offloading/management via HD Lung optimization as per pulmonary Continue home antiHTN therapy Will obtain outpatient echocardiogram when recovered from COVID Supportive care Justicifation of Admission Dx: Justifications for Admission: Justification of Admission Dx: Yes PACO HESTER MD 05/16/20 1851: CARDIO Progress Notes Assessment Assessment Agree with SALESPERSON SHOES's assessment and plan. Trop elevation demand ischemia Plan echo probably as outpatient Ac on chr diastolic HF better compensated Cont treatment of ARF/CVovid PNA per pulm team Cont hemodialysis per nephrology team WASHINGTON PATEL APRN May 16, 2020 15:32 PACO HESTER MD May 16, 2020 18:51
[2020-05-16 19:43] VITALS: BP 150/84
[2020-05-16] MEDS: LACTOBACILLUS RHAMNOSUS GG 1 CAPSULE. PO SCH (21:13)
[2020-05-16 22:46] VITALS: BP 137/81
[2020-05-17 03:34] VITALS: BP 147/87
[2020-05-17] MEDS: cefTRIAXone IV Push 1 GM VIAL. IVP SCH (05:21)
[2020-05-17] MEDS: AZITHROMYCIN 500 MG in IV NORMAL SALINE 250ML 250 ML IV SCH (05:21)
[2020-05-17] MEDS: methylPREDNISolone SOD SUCC PF 125 MG/2 ML VIAL. IV SCH ×3 (05:21→21:58)
[2020-05-17] MEDS: HEPARIN for SUB-Q USE 5,000 UNIT/ML VIAL. SQ SCH ×3 (05:22→21:59)
[2020-05-17 07:00] VITALS: BP 140/87
--- NOTE | 2020-05-17 08:40 | PDOC ---
PULMONARY PROGRESS NOTES Subjective Patient feels better not more short of air no chest pain Vitals Vital Signs Date Time Temp Pulse Resp B/P (MAP) Pulse Ox O2 Delivery O2 Flow Rate FiO2 05/17/20 07:00 98.6 80 16 140/87 (104) 92 Room Air 98.6 05/16/20 20:08 3.0 General: Alert Lungs: Crackles Cardiovascular: S1, S2 Abdomen: Soft Neuro Exam: Alert Extremities: No Edema Skin: Warm Medications Active Scripts Medications Dose Route/Sig Max Daily Dose Days Date Category Calcium Acetate 667 Mg Tablet 1 Tab PO TID 30 05/15/20 Reported Amlodipine Besylate 10 Mg Tablet 10 Mg PO DAILY 05/15/20 Reported Clonidine Hcl 0.2 Mg Tablet 1 Tab PO BID 05/15/20 Reported Carvedilol 25 Mg Tablet 25 Mg PO BIDWMEALS 05/15/20 Reported Impression . IMPRESSION: 1. Acute hypoxemic failure. 2. COVID-19 viral pneumonia. 3. Fever secondary to above. 4. End-stage renal disease. Plan . Discharge home soon from my standpoint of view okay Steroids Oxygen supplementation DVT GI prophylax KRISTIE XIONG MD May 17, 2020 08:40
[2020-05-17] MEDS: amLODIPine BESYLATE 10 MG TABLET PO SCH (08:51)
[2020-05-17] MEDS: CARVEDILOL 12.5 MG TABLET. PO SCH ×2 (08:51→16:55)
[2020-05-17] MEDS: LACTOBACILLUS RHAMNOSUS GG 1 CAPSULE. PO SCH ×2 (08:51→21:58)
[2020-05-17] MEDS: cloNIDine HCL 0.2 MG TABLET PO SCH ×2 (08:51→21:58)
[2020-05-17] MEDS: CALCIUM ACETATE 667 MG CAPSULE PO SCH ×3 (08:51→16:54)
[2020-05-17 09:06] LABS: CALCIUM 6.9 mg/dL (8.5-10.1); CREATININE 9.4 mg/dL (0.7-1.3); GFR 6.6
--- NOTE | 2020-05-17 09:30 | PDOC ---
WASHINGTON PATEL [employer]ER 05/17/20 0929: CARDIO Progress Notes Date and Time Date of Service 05/17/20 Time of Evaluation 1100 Subjective Subjective: No Chest Pain, No Palpitations, No Dizziness, Other (breathing improved ) Vitals Vitals Vital Signs Date Time Temp Pulse Resp B/P (MAP) Pulse Ox O2 Delivery O2 Flow Rate FiO2 05/17/20 08:51 80 140/87 05/17/20 07:00 98.6 16 92 Room Air 98.6 05/16/20 20:08 3.0 Weight Weight [ ] Input and Output Intake and Output Intake and Output 05/17/20 07:00 Intake Total 1490 ml Output Total 0 ml Balance 1490 ml Intake Oral 1490 ml Output Urine Total 0 ml # Voids 1 Laboratory Labs Laboratory Tests Test 05/17/20 08:20 Sodium Level 136 mmol/L (136-145) Potassium Level 4.0 mmol/L (3.5-5.1) Chloride Level 97 mmol/L (98-107) Carbon Dioxide Level 23 mmol/L (21-32) Anion Gap 16 (6-14) Blood Urea Nitrogen 69 mg/dL (8-26) Creatinine 9.4 mg/dL (0.7-1.3) Estimated GFR (Cockcroft-Gault) 6.6 Glucose Level 140 mg/dL (70-99) Calcium Level 6.9 mg/dL (8.5-10.1) Microbiology Micro Microbiology 05/15/20 Blood Culture - Preliminary, Resulted NO GROWTH AFTER 2 DAYS Physical Exam HEENT: Neck Supple W Full Motion Chest: Symmetric Heart: S1S2, RRR Abdomen: Soft N/T Extremities: No Edema Neurology: alert, oriented, follow commands Assessment Assessment 1. Acute respiratory failure secondary to COVID PNA. 2. Leukopenia 3. NSTEMI; trop peak 0.219. Most probably type II, demand ischemic in setting of COVID, uremia. 4. Acute diastolic CHF; appear compensated 5. ESRD on HD 6. Hypertension; controlled Recommendations Ongoing support Fluid offloading/management via HD Continue current antiHTN therapy Outpatient echocardiogram as scheduled Supportive care Follow up in our office as scheduled Justicifation of Admission Dx: Justifications for Admission: Justification of Admission Dx: Yes PACO HESTER MD 05/18/20 0838: CARDIO Progress Notes Assessment Assessment Patient seen and examined 05/17/20. Agree with TILE EDGER's assessment and plan. Non-STEMI most probably demand ischemia. Acute on chronic diastolic heart failure better compensated. Plan for outpatient 2D echocardiogram. Continue treatment for ARF/ Covid PNA per pulmonary team. Continue hemodialysis per nephrology team. WASHINGTON PATEL APRN May 17, 2020 09:29 PACO HESTER MD May 18, 2020 08:25
[2020-05-17 11:00] VITALS: BP 143/83
--- NOTE | 2020-05-17 11:33 | PDOC ---
[facility] PROGRESS NOTE Chief Complaint Chief Complaint COVID-19 ESRD on dialysis Respiratory failure with pneumonia and heart failure and volume overload. History of Present Illness History of Present Illness 05-17-2020 Patient seen and examined Chart reviewed Discussed with 05/16/2022 Patient seen and examined He is on his way to dialysis Discussed with RN Chart Vitals/I&O Vitals/I&O: Vital Signs Date Time Temp Pulse Resp B/P (MAP) Pulse Ox O2 Delivery O2 Flow Rate FiO2 05/17/20 11:00 99.8 77 16 143/83 (103) 94 Room Air 99.8 05/17/20 08:00 3.0 I & O 05/16/20 05/16/20 05/17/20 15:00 23:00 07:00 Intake Total 300 ml 590 ml 600 ml Output Total 0 ml 0 ml Balance 300 ml 590 ml 600 ml Physical Exam General: Alert, Oriented X3, Cooperative Heart: Regular rate (tele SR) Lungs: Crackles Abdomen: Normal bowel sounds Extremities: No clubbing, No edema Skin: No rashes Labs Labs: Laboratory Tests Test 05/17/20 08:20 Sodium Level 136 mmol/L (136-145) Potassium Level 4.0 mmol/L (3.5-5.1) Chloride Level 97 mmol/L (98-107) Carbon Dioxide Level 23 mmol/L (21-32) Anion Gap 16 (6-14) Blood Urea Nitrogen 69 mg/dL (8-26) Creatinine 9.4 mg/dL (0.7-1.3) Estimated GFR (Cockcroft-Gault) 6.6 Glucose Level 140 mg/dL (70-99) Calcium Level 6.9 mg/dL (8.5-10.1) Assessment and Plan Assessmemt and Plan Problems Medical Problems: (1) COVID-19 Status: Acute (2) NSTEMI (non-ST elevated myocardial infarction) Status: Acute (3) Pneumonia Status: Acute COVID-19 ESRD on dialysis Respiratory failure with pneumonia and heart failure and volume overload. New abdominal pain Plan COVID-19 protocol Dialysis Friday Home meds Consult GI for abdominal pain DVT prophylaxis Full code Appreciate subspecialist input Prognosis guarded Comment Review of Relevant I have reviewed the following items samira (where applicable) has been applied. Medications: Current Medications Medications (Trade) Dose Ordered Sig/Wale Route PRN Reason Start Time Stop Time Status Last Admin Dose Admin Lactobacillus Rhamnosus (Culturelle) 1 cap BID PO 05/16/20 21:00 05/17/20 08:51 Justicifation of Admission Dx: Justifications for Admission: Justification of Admission Dx: Yes SARAH HUMPHREY III DO May 17, 2020 11:33
--- NOTE | 2020-05-17 13:19 | PDOC ---
SUBJECTIVE ROS stable OBJECTIVE Vital Signs Vital Signs Date Time Temp Pulse Resp B/P (MAP) Pulse Ox O2 Delivery O2 Flow Rate FiO2 05/17/20 11:00 99.8 77 16 143/83 (103) 94 Room Air 99.8 05/17/20 08:00 3.0 I & 0 Intake and Output 05/17/20 07:00 Intake Total 1490 ml Output Total 0 ml Balance 1490 ml Intake Oral 1490 ml Output Urine Total 0 ml # Voids 1 PHYSICAL EXAM Physical Exam visual exam conducted due to COVID. D/w RN General: Alert, Oriented X3, Cooperative HEENT: Atraumatic Heart: Regular rate (tele SR) Extremities: No edema Neuro: Normal speech Psych/Mental Status: Mental status NL No Mendez DIAGNOSIS/ASSESSMENT Assessment & Plan ESRD -On HD TTS under Dr. 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 Given some areas of nodularity, follow-up to radiographic resolution is recommended. Alternatively, contrast enhanced CT chest could also be considered COVID-19 viral pneumonia- Positive at outside lab , Pulm managing HTN - BP stable Anemia- Goal Hgb 10-11, DELLA per protocol Acute diastolic CHF- stable, card consulted COMMENT/RELEVANT DATA Meds Current Medications Medications (Trade) Dose Ordered Sig/Wale Start Time Stop Time Status Last Admin Dose Admin Acetaminophen (Tylenol) 650 mg PRN Q6HRS PRN 05/15/20 15:45 05/16/20 14:20 650 MG Albumin Human 200 ml @ 200 mls/hr 1X PRN PRN 05/16/20 08:45 05/16/20 14:44 DC Amlodipine Besylate (Norvasc) 10 mg DAILY 05/15/20 12:00 05/17/20 08:51 10 MG Aspirin (Aspirin Chewable) 324 mg 1X ONCE 05/15/20 05:30 05/15/20 05:31 DC 05/15/20 05:34 324 MG Azithromycin 250 ml @ 250 mls/hr 1X ONCE 05/15/20 05:00 05/15/20 05:59 DC 05/15/20 05:36 250 MLS/HR Azithromycin 500 mg/Sodium Chloride 250 ml @ 250 mls/hr Q24H 05/16/20 06:00 05/17/20 05:21 250 MLS/HR Calcium Acetate (Phoslo) 667 mg TIDWMEALS 05/15/20 12:00 05/17/20 11:53 667 MG Carvedilol (Coreg) 25 mg BIDWMEALS 05/15/20 12:00 05/17/20 08:51 25 MG Ceftriaxone Sodium (Rocephin) 1 gm Q24H 05/16/20 05:30 05/17/20 05:21 1 GM Clonidine HCl (Catapres) 0.2 mg BID 05/15/20 11:00 05/17/20 08:51 0.2 MG Diphenhydramine HCl (Benadryl) 25 mg 1X PRN PRN 05/16/20 08:15 05/17/20 08:14 DC Enoxaparin Sodium (Lovenox 30mg Syringe) 30 mg Q24H 05/15/20 15:15 05/15/20 17:47 DC Heparin Sodium (Porcine) (Heparin Sodium) 5,000 unit Q8HRS 05/15/20 22:00 05/17/20 05:22 5,000 UNIT Info (PHARMACY MONITORING -- do not chart) 1 each PRN DAILY PRN 05/16/20 08:45 Lactobacillus Rhamnosus (Culturelle) 1 cap BID 05/16/20 21:00 05/17/20 08:51 1 CAP Methylprednisolone Sodium Succinate (SOLU-Medrol 125MG VIAL) 125 mg Q8HRS 05/15/20 15:15 05/17/20 05:21 125 MG Sodium Chloride 1,000 ml @ 400 mls/hr Q2H30M PRN 05/16/20 08:34 05/16/20 20:33 DC Lab Laboratory Tests Test 05/17/20 08:20 Sodium Level 136 mmol/L (136-145) Potassium Level 4.0 mmol/L (3.5-5.1) Chloride Level 97 mmol/L (98-107) Carbon Dioxide Level 23 mmol/L (21-32) Anion Gap 16 (6-14) Blood Urea Nitrogen 69 mg/dL (8-26) Creatinine 9.4 mg/dL (0.7-1.3) Estimated GFR (Cockcroft-Gault) 6.6 Glucose Level 140 mg/dL (70-99) Calcium Level 6.9 mg/dL (8.5-10.1) Results All relevant outside records, renal labs, imaging studies, telemetry/EKG's were reviewed. Justicifation of Admission Dx: Justifications for Admission: Justification of Admission Dx: Yes ALLEN MULLEN MD May 17, 2020 13:19
--- NOTE | 2020-05-17 13:28 | PDOC2 ---
GI CONSULT Reason For Consult: abd pain HPI: HPI: 29 y/o male w/ COVID-19 pneumonia and NSTEMI, admitted 05/15/20. H/o ESRD on HD. Tells me began having epigastric/RUQ discomfort when diagnosed w/ COVID. Associated w/ decreased appetite, possible bloating, and softer/smaller stools. Discomfort keeps him awake - worse at night. Tylenol helps. Seems to indicate some anxiety w/ COVID illness. No reflux/heartburn, dysphagia, n/v, diarrhea, constipation, hematochezia, melena, or weight loss. No previous EGD or colonoscopy. No GB, liver, pancreas, or PUD history. PMH: PMH: HTN, ESRD on HD FH: Family History: No pertinent hx Social History: Smoke: No ALCOHOL: none Drugs: None ROS: GEN: +fever HEENT: Denies blurred vision, sore throat CV: Denies chest pain RESP: +SOA GI: Per HPI : Denies hematuria, dysuria ENDO: Denies weight changes NEURO: Denies confusion, dizziness MSK: Denies weakness, joint pain/swelling SKIN: Denies jaundice, pruritus Vitals: Vitals: Vital Signs Date Time Temp Pulse Resp B/P (MAP) Pulse Ox O2 Delivery O2 Flow Rate FiO2 05/17/20 11:00 99.8 77 16 143/83 (103) 94 Room Air 99.8 05/17/20 08:00 3.0 Labs: Labs: Laboratory Tests Test 05/17/20 08:20 Sodium Level 136 mmol/L (136-145) Potassium Level 4.0 mmol/L (3.5-5.1) Chloride Level 97 mmol/L (98-107) Carbon Dioxide Level 23 mmol/L (21-32) Anion Gap 16 (6-14) Blood Urea Nitrogen 69 mg/dL (8-26) Creatinine 9.4 mg/dL (0.7-1.3) Estimated GFR (Cockcroft-Gault) 6.6 Glucose Level 140 mg/dL (70-99) Calcium Level 6.9 mg/dL (8.5-10.1) BLOOD CULTURE Preliminary NO GROWTH AFTER 2 DAYS Allergies: Coded Allergies: No Known Drug Allergies (Unverified , 05/15/20) Medications: Current Medications Medications (Trade) Dose Ordered Sig/Wale Route PRN Reason Start Time Stop Time Status Last Admin Dose Admin Lactobacillus Rhamnosus (Culturelle) 1 cap BID PO 05/16/20 21:00 05/17/20 08:51 Imaging: Imaging: CXR IMPRESSION: 1. Multifocal bilateral heterogeneous opacities. In the acute setting thisprobably represents pulmonary edema or multifocal infection. Given some areas of nodularity, follow-up to radiographic resolution is recommended. Alternatively, contrast enhanced CT chest could also be considered. 2. Cardiomegaly. Splaying of the benjamín and double density sign suggestive of left atrial enlargement. PE: GEN: NAD HEENT: Atraumatic, PERRL LUNGS: diminished HEART: RRR ABD: NABS, S/ND, pinpoint RUQ discomfort under rib EXTREMITY: No edema SKIN: No rashes, no jaundice NEURO/PSYCH: A & O 3 A/P: A/P: COVID-19 pneumonia, NSTEMI Pancytopenia Upper abdominal discomfort, decreased appetite CRC screen - average risk ESRD on HD -- GI symptoms likely related to COVID-19. Try PPI, Tums, GI cocktail, Bentyl. Monitor stooling. Recheck CBC. Will order abd imaging - could be limited since +COVID. BRIE RICE May 17, 2020 13:28
[2020-05-17] MEDS ORDERED: LIDO:MAALOX 1:1 20 ML SINGLE DOSE. PO PRN (13:30)
[2020-05-17] MEDS ORDERED: CALCIUM CARBONATE 500 MG TAB.CHEW PO PRN (13:30)
[2020-05-17 13:38] LABS: BASO % 0 % (0-3); EOS % 0 % (0-3); HEMATOCRIT 33.4 % (39.0-53.0); HEMOGLOBIN 11.5 g/dL (13.0-17.5); LYMPH # 0.2 x10^3/uL (1.0-4.8); LYMPH % 4 % (24-48); MEAN CORPUSCULAR HEMOGLOBIN 30 pg (25-35); MEAN CORPUSCULAR HGB CONC 34 g/dL (31-37); MEAN CORPUSCULAR VOLUME 88 fL (79-100); MONO # 0.3 x10^3/uL (0.0-1.1); MONO % 5 % (0-9); NEUT # 5.6 x10^3/uL (1.8-7.7); NEUT % 92 % (31-73); PLATELET COUNT 122 x10^3/uL (140-400); RED BLOOD COUNT 3.82 x10^6/uL (4.30-5.70); RED CELL DISTRIBUTION WIDTH 13.9 % (11.5-14.5); WHITE BLOOD COUNT 6.1 x10^3/uL (4.0-11.0)
[2020-05-17] MEDS ORDERED: DICYCLOMINE HCL 10 MG CAPSULE PO PRN (13:45)
[2020-05-17 15:10] LABS: % BANDS 11 % (0-9); % LYMPHS 3 % (24-48); % MONOS 3 % (0-10); % SEGS 83 % (35-66)
[2020-05-17 15:14] VITALS: BP 137/81
[2020-05-17 15:52] LABS: PLT ESTIMATE DECREASED (ADEQUATE); POIKILOCYTOSIS SLIGHT
--- NOTE | 2020-05-17 16:37 | NUR ---
SW following. Spoke with RN and reviewed chart. Pt not ready for discharge. GI consulted per abdominal pain. Pt off 3l 02 and is now on room air. Pt COVID positive. SW to continue following.
[2020-05-17] MEDS: PANTOPRAZOLE 40 MG TABLET.DR. PO SCH (16:54)
[2020-05-17 19:00] VITALS: BP 147/83
--- NOTE | 2020-05-17 20:44 | RAD ---
ABDOMEN COMPLETE History: Right upper quadrant pain, COVID positive Comparison: None. Findings: Multiple sonographic images of the abdomen are submitted. There is no obvious abnormality of the visualized pancreas although poorly seen due to bowel gas. Gallbladder is present without demonstrable intraluminal abnormality although contracted appearance and gallbladder wall somewhat prominent about 0.34 cm. Common bile duct is not dilated about 0.3 cm. Right kidney measured 8.4 x 4 by 3 cm, no hydronephrosis. There is a small hypoechoic lesion of the mid right kidney about 1 cm in size, likely a small cyst. Left kidney measured 8.7 x 4.1 x 3.2 cm, no hydronephrosis. There is a hypoechoic lesion of the mid left kidney about 2 cm in size probably a cyst. There is increased echogenicity of the renal parenchyma bilaterally. Abdominal aortic caliber is within normal limits in greatest dimension 1.7 cm proximally. There is segmental visualization of the inferior vena cava. Hepatic echotexture is within normal limits, no focal hepatic lesion demonstrated. Spleen measured about 12.1 cm. Incidental note is made of bilateral pleural effusions. There is mild free fluid in the visualized abdomen. Impression: 1. There is nonspecific contracted appearance of the gallbladder, somewhat prominent gallbladder wall thickness which could be due to contraction. 2. There is increased echogenicity of the small bilateral kidneys, may be seen with medical renal disease. There are bilateral renal cysts greater on the left. 3. Incidental note is made of pleural effusions. 4. There is mild free fluid in the abdomen. Electronically signed by: Casper Barrera MD (05/17/2020 8:41 PM) [facility] HOSPITALJaiden
[2020-05-17] MEDS: ACETAMINOPHEN 325 MG TABLET. PO PRN (21:58)
[2020-05-17 23:00] VITALS: BP 124/75
[2020-05-18 03:00] VITALS: BP 132/79
[2020-05-18 04:43] LABS: BASO % 0 % (0-3); EOS % 0 % (0-3); HEMATOCRIT 28.6 % (39.0-53.0); HEMOGLOBIN 9.7 g/dL (13.0-17.5); LYMPH # 0.2 x10^3/uL (1.0-4.8); LYMPH % 6 % (24-48); MEAN CORPUSCULAR HEMOGLOBIN 30 pg (25-35); MEAN CORPUSCULAR HGB CONC 34 g/dL (31-37); MEAN CORPUSCULAR VOLUME 88 fL (79-100); MONO # 0.2 x10^3/uL (0.0-1.1); MONO % 6 % (0-9); NEUT # 3.4 x10^3/uL (1.8-7.7); NEUT % 88 % (31-73); PLATELET COUNT 107 x10^3/uL (140-400); RED BLOOD COUNT 3.26 x10^6/uL (4.30-5.70); RED CELL DISTRIBUTION WIDTH 14.2 % (11.5-14.5); WHITE BLOOD COUNT 3.9 x10^3/uL (4.0-11.0)
[2020-05-18] MEDS: methylPREDNISolone SOD SUCC PF 125 MG/2 ML VIAL. IV SCH ×2 (05:05→15:33)
[2020-05-18] MEDS: cefTRIAXone IV Push 1 GM VIAL. IVP SCH (05:05)
[2020-05-18] MEDS: AZITHROMYCIN 500 MG in IV NORMAL SALINE 250ML 250 ML IV SCH (05:09)
[2020-05-18] MEDS: HEPARIN for SUB-Q USE 5,000 UNIT/ML VIAL. SQ SCH ×2 (06:00→14:00)
[2020-05-18 07:30] VITALS: BP 140/81
[2020-05-18] MEDS: LACTOBACILLUS RHAMNOSUS GG 1 CAPSULE. PO SCH (08:41)
[2020-05-18] MEDS: PANTOPRAZOLE 40 MG TABLET.DR. PO SCH (08:41)
[2020-05-18] MEDS: CALCIUM ACETATE 667 MG CAPSULE PO SCH ×3 (08:41→17:07)
--- NOTE | 2020-05-18 08:43 | PDOC ---
PULMONARY PROGRESS NOTES Subjective Patient complaining of abdominal discomfort patient feels better not more short of air no chest pain Vitals Vital Signs Date Time Temp Pulse Resp B/P (MAP) Pulse Ox O2 Delivery O2 Flow Rate FiO2 05/18/20 07:30 97.7 74 18 140/81 (100) 94 Room Air 97.7 05/17/20 20:00 3.0 General: Alert Lungs: Crackles Cardiovascular: S1, S2 Abdomen: Soft Neuro Exam: Alert Extremities: No Edema Skin: Warm Labs Laboratory Tests Test 05/17/20 08:20 05/18/20 04:08 White Blood Count 6.1 x10^3/uL (4.0-11.0) 3.9 x10^3/uL (4.0-11.0) Red Blood Count 3.82 x10^6/uL (4.30-5.70) 3.26 x10^6/uL (4.30-5.70) Hemoglobin 11.5 g/dL (13.0-17.5) 9.7 g/dL (13.0-17.5) Hematocrit 33.4 % (39.0-53.0) 28.6 % (39.0-53.0) Mean Corpuscular Volume 88 fL (79-100) 88 fL (79-100) Mean Corpuscular Hemoglobin 30 pg (25-35) 30 pg (25-35) Mean Corpuscular Hemoglobin Concent 34 g/dL (31-37) 34 g/dL (31-37) Red Cell Distribution Width 13.9 % (11.5-14.5) 14.2 % (11.5-14.5) Platelet Count 122 x10^3/uL (140-400) 107 x10^3/uL (140-400) Neutrophils (%) (Auto) 92 % (31-73) 88 % (31-73) Lymphocytes (%) (Auto) 4 % (24-48) 6 % (24-48) Monocytes (%) (Auto) 5 % (0-9) 6 % (0-9) Eosinophils (%) (Auto) 0 % (0-3) 0 % (0-3) Basophils (%) (Auto) 0 % (0-3) 0 % (0-3) Neutrophils # (Auto) 5.6 x10^3/uL (1.8-7.7) 3.4 x10^3/uL (1.8-7.7) Lymphocytes # (Auto) 0.2 x10^3/uL (1.0-4.8) 0.2 x10^3/uL (1.0-4.8) Monocytes # (Auto) 0.3 x10^3/uL (0.0-1.1) 0.2 x10^3/uL (0.0-1.1) Eosinophils # (Auto) 0.0 x10^3/uL (0.0-0.7) 0.0 x10^3/uL (0.0-0.7) Basophils # (Auto) 0.0 x10^3/uL (0.0-0.2) 0.0 x10^3/uL (0.0-0.2) Segmented Neutrophils % 83 % (35-66) Band Neutrophils % 11 % (0-9) Lymphocytes % 3 % (24-48) Monocytes % 3 % (0-10) Platelet Estimate Decreased (ADEQUATE) Poikilocytosis Slight Anisocytosis Sodium Level 136 mmol/L (136-145) Potassium Level 4.0 mmol/L (3.5-5.1) Chloride Level 97 mmol/L (98-107) Carbon Dioxide Level 23 mmol/L (21-32) Anion Gap 16 (6-14) Blood Urea Nitrogen 69 mg/dL (8-26) Creatinine 9.4 mg/dL (0.7-1.3) Estimated GFR (Cockcroft-Gault) 6.6 Glucose Level 140 mg/dL (70-99) Calcium Level 6.9 mg/dL (8.5-10.1) Laboratory Tests Test 05/18/20 04:08 White Blood Count 3.9 x10^3/uL (4.0-11.0) Red Blood Count 3.26 x10^6/uL (4.30-5.70) Hemoglobin 9.7 g/dL (13.0-17.5) Hematocrit 28.6 % (39.0-53.0) Mean Corpuscular Volume 88 fL (79-100) Mean Corpuscular Hemoglobin 30 pg (25-35) Mean Corpuscular Hemoglobin Concent 34 g/dL (31-37) Red Cell Distribution Width 14.2 % (11.5-14.5) Platelet Count 107 x10^3/uL (140-400) Neutrophils (%) (Auto) 88 % (31-73) Lymphocytes (%) (Auto) 6 % (24-48) Monocytes (%) (Auto) 6 % (0-9) Eosinophils (%) (Auto) 0 % (0-3) Basophils (%) (Auto) 0 % (0-3) Neutrophils # (Auto) 3.4 x10^3/uL (1.8-7.7) Lymphocytes # (Auto) 0.2 x10^3/uL (1.0-4.8) Monocytes # (Auto) 0.2 x10^3/uL (0.0-1.1) Eosinophils # (Auto) 0.0 x10^3/uL (0.0-0.7) Basophils # (Auto) 0.0 x10^3/uL (0.0-0.2) Medications Active Scripts Medications Dose Route/Sig Max Daily Dose Days Date Category Calcium Acetate 667 Mg Tablet 1 Tab PO TID 30 05/15/20 Reported Amlodipine Besylate 10 Mg Tablet 10 Mg PO DAILY 05/15/20 Reported Clonidine Hcl 0.2 Mg Tablet 1 Tab PO BID 05/15/20 Reported Carvedilol 25 Mg Tablet 25 Mg PO BIDWMEALS 05/15/20 Reported Impression . IMPRESSION: 1. Acute hypoxemic failure. 2. COVID-19 viral pneumonia. 3. Fever secondary to above. 4. End-stage renal disease. Plan . Discharge today okay Steroids Taper steroid Oxygen supplementation DVT GI prophylax KRISTIE XIONG MD May 18, 2020 08:43
--- NOTE | 2020-05-18 10:54 | PDOC ---
[employer] PROGRESS NOTE Chief Complaint Chief Complaint COVID-19 ESRD on dialysis Respiratory failure with pneumonia and heart failure and volume overload. History of Present Illness History of Present Illness 05-18-2020 Patient seen and examined He is at baseline We will probably discharge if okay with pulmonary 05-17-2020 Patient seen and examined Chart reviewed Discussed with 05/16/2022 Patient seen and examined He is on his way to dialysis Discussed with RN Chart Vitals/I&O Vitals/I&O: Vital Signs Date Time Temp Pulse Resp B/P (MAP) Pulse Ox O2 Delivery O2 Flow Rate FiO2 05/18/20 08:00 Room Air 05/18/20 07:30 97.7 74 18 140/81 (100) 94 97.7 05/17/20 20:00 3.0 I & O 05/17/20 05/17/20 05/18/20 15:00 23:00 07:00 Intake Total 380 ml 500 ml 440 ml Balance 380 ml 500 ml 440 ml Physical Exam General: Alert, Oriented X3, Cooperative Heart: Regular rate (tele SR) Lungs: Crackles Abdomen: Normal bowel sounds Extremities: No clubbing, No edema Skin: No rashes Labs Labs: Laboratory Tests Test 05/18/20 04:08 White Blood Count 3.9 x10^3/uL (4.0-11.0) Red Blood Count 3.26 x10^6/uL (4.30-5.70) Hemoglobin 9.7 g/dL (13.0-17.5) Hematocrit 28.6 % (39.0-53.0) Mean Corpuscular Volume 88 fL (79-100) Mean Corpuscular Hemoglobin 30 pg (25-35) Mean Corpuscular Hemoglobin Concent 34 g/dL (31-37) Red Cell Distribution Width 14.2 % (11.5-14.5) Platelet Count 107 x10^3/uL (140-400) Neutrophils (%) (Auto) 88 % (31-73) Lymphocytes (%) (Auto) 6 % (24-48) Monocytes (%) (Auto) 6 % (0-9) Eosinophils (%) (Auto) 0 % (0-3) Basophils (%) (Auto) 0 % (0-3) Neutrophils # (Auto) 3.4 x10^3/uL (1.8-7.7) Lymphocytes # (Auto) 0.2 x10^3/uL (1.0-4.8) Monocytes # (Auto) 0.2 x10^3/uL (0.0-1.1) Eosinophils # (Auto) 0.0 x10^3/uL (0.0-0.7) Basophils # (Auto) 0.0 x10^3/uL (0.0-0.2) Iron Level 140 ug/dL (65-175) Total Iron Binding Capacity 141 ug/dL (250-450) Iron Saturation 99 % (15-34) Vitamin B12 Level 1280 pg/mL (247-911) Assessment and Plan Assessmemt and Plan Problems Medical Problems: (1) COVID-19 Status: Acute (2) NSTEMI (non-ST elevated myocardial infarction) Status: Acute (3) Pneumonia Status: Acute Discharge Comment Review of Relevant I have reviewed the following items samira (where applicable) has been applied. Medications: Current Medications Medications (Trade) Dose Ordered Sig/Wale Route PRN Reason Start Time Stop Time Status Last Admin Dose Admin Pantoprazole Sodium (Protonix) 40 mg DAILYAC PO 05/17/20 16:30 05/18/20 08:41 Justicifation of Admission Dx: Justifications for Admission: Justification of Admission Dx: Yes SARAH HUMPHREY III DO May 18, 2020 10:54
[2020-05-18] MEDS ORDERED: IV NORMAL SALINE 1000ML BAG 1,000 ML IV PRN ×2 (10:55)
[2020-05-18 11:00] VITALS: BP 159/93
[2020-05-18] MEDS ORDERED: diphenhydrAMINE 50 MG/ML VIAL IV PRN ×2 (11:00)
[2020-05-18] MEDS ORDERED: ALBUMIN HUMAN 25% 200 ML IV PRN (11:00)
[2020-05-18] MEDS ORDERED: DIALYSIS PATIENT. MC PRN ×2 (11:00)
--- NOTE | 2020-05-18 11:07 | PDOC ---
SUBJECTIVE ROS stable OBJECTIVE Vital Signs Vital Signs Date Time Temp Pulse Resp B/P (MAP) Pulse Ox O2 Delivery O2 Flow Rate FiO2 05/18/20 08:00 Room Air 05/18/20 07:30 97.7 74 18 140/81 (100) 94 97.7 05/17/20 20:00 3.0 I & 0 Intake and Output 05/18/20 07:00 Intake Total 1320 ml Balance 1320 ml Intake Oral 1120 ml IV Total 200 ml # Voids 1 # Bowel Movements 1 PHYSICAL EXAM Physical Exam visual exam conducted due to COVID. D/w RN General: Alert, Oriented X3, Cooperative HEENT: Atraumatic Heart: Regular rate (tele SR) Extremities: No edema Neuro: Normal speech Psych/Mental Status: Mental status NL No Mendez DIAGNOSIS/ASSESSMENT Assessment & Plan ESRD -On HD TTS under Dr. 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 Given some areas of nodularity, follow-up to radiographic resolution is recommended. Alternatively, contrast enhanced CT chest could also be considered COVID-19 viral pneumonia- Positive at outside lab , Pulm managing HTN - BP stable Anemia- Goal Hgb 10-11, DELLA per protocol Acute diastolic CHF- stable, card consulted COMMENT/RELEVANT DATA Meds Current Medications Medications (Trade) Dose Ordered Sig/Wale Start Time Stop Time Status Last Admin Dose Admin Acetaminophen (Tylenol) 650 mg PRN Q6HRS PRN 05/15/20 15:45 05/17/20 21:58 650 MG Albumin Human 200 ml @ 200 mls/hr 1X PRN PRN 05/18/20 11:00 05/18/20 16:59 UNV Amlodipine Besylate (Norvasc) 10 mg DAILY 05/15/20 12:00 05/17/20 08:51 10 MG Aspirin (Aspirin Chewable) 324 mg 1X ONCE 05/15/20 05:30 05/15/20 05:31 DC 05/15/20 05:34 324 MG Azithromycin 250 ml @ 250 mls/hr 1X ONCE 05/15/20 05:00 7/6/20 05:59 DC 05/15/20 05:36 250 MLS/HR Azithromycin 500 mg/Sodium Chloride 250 ml @ 250 mls/hr Q24H 05/16/20 06:00 05/18/20 05:09 250 MLS/HR Calcium Acetate (Phoslo) 667 mg TIDWMEALS 05/15/20 12:00 05/18/20 08:41 667 MG Calcium Carbonate/ Glycine (Tums) 500 mg PRN AFTMEALHC PRN 05/17/20 13:30 Carvedilol (Coreg) 25 mg BIDWMEALS 05/15/20 12:00 05/17/20 16:55 25 MG Ceftriaxone Sodium (Rocephin) 1 gm Q24H 05/16/20 05:30 05/18/20 05:05 1 GM Clonidine HCl (Catapres) 0.2 mg BID 05/15/20 11:00 05/17/20 21:58 0.2 MG Dicyclomine HCl (Bentyl) 10 mg PRN QID PRN 05/17/20 13:45 Diphenhydramine HCl (Benadryl) 25 mg 1X PRN PRN 05/18/20 11:00 05/19/20 10:59 UNV Enoxaparin Sodium (Lovenox 30mg Syringe) 30 mg Q24H 05/15/20 15:15 05/15/20 17:47 DC Heparin Sodium (Porcine) (Heparin Sodium) 5,000 unit Q8HRS 05/15/20 22:00 05/17/20 21:59 5,000 UNIT Info (PHARMACY MONITORING -- do not chart) 1 each PRN DAILY PRN 05/18/20 11:00 UNV Lactobacillus Rhamnosus (Culturelle) 1 cap BID 05/16/20 21:00 05/18/20 08:41 1 CAP Methylprednisolone Sodium Succinate (SOLU-Medrol 125MG VIAL) 125 mg Q8HRS 05/15/20 15:15 05/18/20 05:05 125 MG Multi-Ingredient Mouthwash/Gargle (Gi Cocktail) 20 ml PRN QID PRN 05/17/20 13:30 Pantoprazole Sodium (Protonix) 40 mg DAILYAC 05/17/20 16:30 05/18/20 08:41 40 MG Sodium Chloride 1,000 ml @ 400 mls/hr Q2H30M PRN 05/18/20 10:55 05/18/20 22:54 UNV Lab Laboratory Tests Test 05/18/20 04:08 White Blood Count 3.9 x10^3/uL (4.0-11.0) Red Blood Count 3.26 x10^6/uL (4.30-5.70) Hemoglobin 9.7 g/dL (13.0-17.5) Hematocrit 28.6 % (39.0-53.0) Mean Corpuscular Volume 88 fL (79-100) Mean Corpuscular Hemoglobin 30 pg (25-35) Mean Corpuscular Hemoglobin Concent 34 g/dL (31-37) Red Cell Distribution Width 14.2 % (11.5-14.5) Platelet Count 107 x10^3/uL (140-400) Neutrophils (%) (Auto) 88 % (31-73) Lymphocytes (%) (Auto) 6 % (24-48) Monocytes (%) (Auto) 6 % (0-9) Eosinophils (%) (Auto) 0 % (0-3) Basophils (%) (Auto) 0 % (0-3) Neutrophils # (Auto) 3.4 x10^3/uL (1.8-7.7) Lymphocytes # (Auto) 0.2 x10^3/uL (1.0-4.8) Monocytes # (Auto) 0.2 x10^3/uL (0.0-1.1) Eosinophils # (Auto) 0.0 x10^3/uL (0.0-0.7) Basophils # (Auto) 0.0 x10^3/uL (0.0-0.2) Iron Level 140 ug/dL (65-175) Total Iron Binding Capacity 141 ug/dL (250-450) Iron Saturation 99 % (15-34) Vitamin B12 Level 1280 pg/mL (247-911) Results All relevant outside records, renal labs, imaging studies, telemetry/EKG's were reviewed. Justicifation of Admission Dx: Justifications for Admission: Justification of Admission Dx: Yes ALLEN MULLEN MD May 18, 2020 11:07
--- NOTE | 2020-05-18 11:49 | PDOC ---
Objective: Objective: D/w nurse - pt thinks antibiotics causing stomach pain. Was not given Bentyl, GI cocktail, or Tums. Has DC order. Vital Signs: Vital Signs Date Time Temp Pulse Resp B/P (MAP) Pulse Ox O2 Delivery O2 Flow Rate FiO2 05/18/20 11:00 98.7 79 18 159/93 (115) 92 Room Air 98.7 05/17/20 20:00 3.0 Labs: Laboratory Tests Test 05/18/20 04:08 White Blood Count 3.9 x10^3/uL Red Blood Count 3.26 x10^6/uL Hemoglobin 9.7 g/dL Hematocrit 28.6 % Mean Corpuscular Volume 88 fL Mean Corpuscular Hemoglobin 30 pg Mean Corpuscular Hemoglobin Concent 34 g/dL Red Cell Distribution Width 14.2 % Platelet Count 107 x10^3/uL Neutrophils (%) (Auto) 88 % Lymphocytes (%) (Auto) 6 % Monocytes (%) (Auto) 6 % Eosinophils (%) (Auto) 0 % Basophils (%) (Auto) 0 % Neutrophils # (Auto) 3.4 x10^3/uL Lymphocytes # (Auto) 0.2 x10^3/uL Monocytes # (Auto) 0.2 x10^3/uL Eosinophils # (Auto) 0.0 x10^3/uL Basophils # (Auto) 0.0 x10^3/uL Iron Level 140 ug/dL Total Iron Binding Capacity 141 ug/dL Iron Saturation 99 % Vitamin B12 Level 1280 pg/mL Imaging: Abd US 05/17 Impression: 1. There is nonspecific contracted appearance of the gallbladder, somewhat prominent gallbladder wall thickness which could be due to contraction. 2. There is increased echogenicity of the small bilateral kidneys, may be seen with medical renal disease. There are bilateral renal cysts greater on the left. 3. Incidental note is made of pleural effusions. 4. There is mild free fluid in the abdomen. PE: not seen - out of room for dialysis, requires isolation for COVID+ A/P: COVID-19 pneumonia, NSTEMI RUQ/epigastric discomfort Pancytopenia, abnormal iron studies ESRD on HD -- Has DC orders. Will review all w/ Dr. Obrien. Can follow-up w/ GI as outpt when COVID infection resolved. Justicifation of Admission Dx: Justifications for Admission: Justification of Admission Dx: Yes BRIE RICE May 18, 2020 11:49
--- NOTE | 2020-05-18 12:36 | PDOC ---
W[employer] PATEL [employer] 05/18/20 1236: CARDIO Progress Notes Date and Time Date of Service 05/18/20 Time of Evaluation 1050 Subjective Subjective: No Chest Pain, No Palpitations, No Dizziness, Other (breathing improved ) Vitals Vitals Vital Signs Date Time Temp Pulse Resp B/P (MAP) Pulse Ox O2 Delivery O2 Flow Rate FiO2 05/18/20 11:00 98.7 79 18 159/93 (115) 92 Room Air 98.7 05/17/20 20:00 3.0 Weight Weight [ ] Input and Output Intake and Output Intake and Output 05/18/20 07:00 Intake Total 1320 ml Balance 1320 ml Intake Oral 1120 ml IV Total 200 ml # Voids 1 # Bowel Movements 1 Laboratory Labs Laboratory Tests Test 05/18/20 04:08 White Blood Count 3.9 x10^3/uL (4.0-11.0) Red Blood Count 3.26 x10^6/uL (4.30-5.70) Hemoglobin 9.7 g/dL (13.0-17.5) Hematocrit 28.6 % (39.0-53.0) Mean Corpuscular Volume 88 fL (79-100) Mean Corpuscular Hemoglobin 30 pg (25-35) Mean Corpuscular Hemoglobin Concent 34 g/dL (31-37) Red Cell Distribution Width 14.2 % (11.5-14.5) Platelet Count 107 x10^3/uL (140-400) Neutrophils (%) (Auto) 88 % (31-73) Lymphocytes (%) (Auto) 6 % (24-48) Monocytes (%) (Auto) 6 % (0-9) Eosinophils (%) (Auto) 0 % (0-3) Basophils (%) (Auto) 0 % (0-3) Neutrophils # (Auto) 3.4 x10^3/uL (1.8-7.7) Lymphocytes # (Auto) 0.2 x10^3/uL (1.0-4.8) Monocytes # (Auto) 0.2 x10^3/uL (0.0-1.1) Eosinophils # (Auto) 0.0 x10^3/uL (0.0-0.7) Basophils # (Auto) 0.0 x10^3/uL (0.0-0.2) Iron Level 140 ug/dL (65-175) Total Iron Binding Capacity 141 ug/dL (250-450) Iron Saturation 99 % (15-34) Vitamin B12 Level 1280 pg/mL (247-911) Microbiology Micro Microbiology 05/15/20 Blood Culture - Preliminary, Resulted NO GROWTH AFTER 3 DAYS Physical Exam HEENT: Neck Supple W Full Motion Chest: Symmetric Heart: S1S2, RRR Abdomen: Soft N/T Extremities: No Edema Neurology: alert, oriented, follow commands Assessment Assessment 1. Acute respiratory failure secondary to COVID PNA. 2. Leukopenia 3. NSTEMI; trop peak 0.219. Most probably type II, demand ischemic in setting of COVID, uremia. 4. Acute diastolic CHF; appear compensated 5. ESRD on HD 6. Hypertension; controlled Recommendations Fluid offloading/management via HD Continue current antiHTN therapy Outpatient echocardiogram as scheduled Supportive care Follow up in our office as scheduled Justicifation of Admission Dx: Justifications for Admission: Justification of Admission Dx: Yes PACO HESTER MD 05/18/20 1910: CARDIO Progress Notes Assessment Assessment Agree with ENGRAVER BLOCK's assessment and plan. Slight trop elevation prob demand ischemia Ac on chr brenner HF compensated Cont HD per nephrology team Plan outpatient 2D echo and follow up with our office WASHINGTON PATEL APRN May 18, 2020 12:36 PACO HESTER MD May 18, 2020 19:10
[2020-05-18 15:20] VITALS: BP 173/107
[2020-05-18] MEDS: cloNIDine HCL 0.2 MG TABLET PO SCH (15:32)
[2020-05-18] MEDS: amLODIPine BESYLATE 10 MG TABLET PO SCH (15:32)
[2020-05-18 15:33] VITALS: BP 173/107
[2020-05-18] MEDS: CARVEDILOL 12.5 MG TABLET. PO SCH (15:33)
--- NOTE | 2020-05-18 17:27 | NUR ---
SW following. Reviewed chart and spoke with RN and CM. Pt from home. Coordinated care with Dr. Campos. Pt ready for discharge pending cardiology and Dr. Solis to see pt today. Discharge orders are completed and SW obtained scripts from Dr. Campos for Augmentin and Medrol Dose Pack. SW to resume out-patient dialysis. No additional SW needs.
--- NOTE | 2020-05-18 18:25 | NUR ---
Discharge Note: [facility] Discharge instructions and discharge home medications reviewed with Patient and a copy given. All questions have been answered and understanding verbalized. Follow up appointment and new medication information provided to patient. The following instructions and handouts were given: pneumonia, reflux Discontinued lines and drains: Peripheral IV intact. Patient discharged to Home or Self Care with Self via Wheelchair
--- NOTE | 2020-05-19 14:38 | DS ---
DATE OF DISCHARGE: 05/18/2020 ADMISSION DIAGNOSES: 1. Respiratory failure with pneumonia and heart failure. 2. Volume overload. 3. End-stage renal disease. 4. Possible COVID-19. DISCHARGE DIAGNOSES: 1. COVID-19 positive. 2. End-stage renal disease, on dialysis. 3. Pneumonia. 4. Acute on chronic systolic and diastolic heart failure. 5. Resolving volume overload. CONSULTATIONS: Cardiology, Nephrology, and Pulmonary Medicine. PROCEDURE: Dialysis. HOSPITAL COURSE: The patient is a pleasant middle-aged male, who presented with shortness of breath. He appeared to be volume overloaded. He had heart failure and pneumonia. We were concerned he might have COVID-19. He was admitted. He actually did rule in for COVID-19. We did some dialysis and gave him intravenous antibiotics, breathing treatments, and oxygen. Over the next few days, he did better. Yesterday, I saw him and examined him. He was at his baseline. We discharged to home with oral antibiotics and Medrol Dosepak. DISPOSITION: Home. ACTIVITY: As tolerated. DIET: Renal. MEDICATIONS: Please see the MRAD. TOTAL TIME: 32 minutes. SARAH HUMPHREY DO DR: KEITH/zuleyma JOB#: [id number] / [id number]
[2020-08-01] MEDS ORDERED: LOSA100T14 PO (10:18)
[2020-08-01] MEDS ORDERED: HYDR-2867 PO (10:18)
== END 2020-05-18 18:26 | disposition home or self-care (01) | DRG 177 ==
LOC: ER 03:55 → 6 SOUTH 05:30
PROVIDERS: ADMIT Internal Medicine; ATTEND Internal Medicine
PROC: 5A1D70Z Performance of Urinary Filtration, Intermittent, Less than 6 Hours Per Day (ICD-10-PCS; principal; 2020-05-16)
PROC: 5A1D70Z Performance of Urinary Filtration, Intermittent, Less than 6 Hours Per Day (ICD-10-PCS; 2020-05-18)
DX: U07.1 COVID-19 (principal); J96.01 Acute respiratory failure with hypoxia; N18.6 End stage renal disease; I50.33 Acute on chronic diastolic (congestive) heart failure; J12.89 Other viral pneumonia; I21.A1 Myocardial infarction type 2; I13.2 Hypertensive heart and chronic kidney disease with heart failure and with stage 5 chronic kidney disease, or end stage renal disease; D61.818 Other pancytopenia; D72.819 Decreased white blood cell count, unspecified; F41.9 Anxiety disorder, unspecified; N27.1 Small kidney, bilateral; N28.1 Cyst of kidney, acquired; Z83.3 Family history of diabetes mellitus; Z99.2 Dependence on renal dialysis
CPT/HCPCS: 36415; 71045; 76700; 80048; 80053; 80061; 82607; 83540; 83550; 83605; 83880; 84484; 85007; 85025; 87040; 93005; 96365; 96366; 96375; J0456; J0696; J1644; J1650; J2930; J7050; 99285-25; G0378; J7030; U0003-CS